=== PATIENT | male | born 1950 | race Caucasian/White ===

== ENCOUNTER 2016-06-06 02:30 | Emergency (ER) | payer BC ==
[~2016-06-06 02:30] MED LIST: AMLO10TA2 PO; ASPI81TA21 PO; ATEN25TA PO; LIPI10TA PO; METF500T PO; NITR0.4D TD; PRED20TA PO; RAMI5CAP PO
[2016-06-06 03:32] LABS: BASO # 0.1 K/mm3 (0.0-0.2); BASO % 1.1 % (0.0-1.0); EOS # 0.3 K/mm3 (0.0-0.50); EOS % 4.1 % (0.0-3.0); LARGE UNSTAINED CELL # 0.2 K/mm3 (0.0-0.4); LARGE UNSTAINED CELL % 2.4 % (0.0-4.0); LYMPH # 1.9 K/mm3 (1.5-4.5); LYMPH % 25.7 % (24.0-44.0); MEAN CORPUSCULAR HEMOGLOBIN 31.5 pg (27.0-33.0); MEAN CORPUSCULAR VOLUME 98.5 fl (80.0-96.0); MONO # 0.5 K/mm3 (0.0-0.8); MONO % 6.6 % (0.0-5.0); NEUTROPHILS # 4.1 K/mm3 (1.8-7.7); NEUTROPHILS % 60.1 % (36.0-66.0); PLATELET COUNT, AUTOMATED 177 k/mm3 (150-450); RED CELL DISTRIBUTION WIDTH 13.5 % (11.5-14.5); WHITE BLOOD COUNT 6.7 K/mm3 (4.0-10.0)
[2016-06-06 03:57] LABS: CALCIUM LEVEL 8.7 MG/DL (8.8-10.2); CREATININE FOR GFR 1.37 MG/DL (0.70-1.30); GLOMERULAR FILTRATION RATE 55.7 (>49); POTASSIUM SERUM 3.6 MEQ/L (3.5-5.1)
--- NOTE | 2016-06-06 04:29 | EDDOCDS ---
Physician Documentation [facility] Name: Geraldo Ruano Age: 66 yrs Sex: Male : 1950 Arrival Date: 06/06/2016 Time: 02:30 Bed 4 Private MD: Ady Batres H Disposition: 06/06/16 04:14 Discharged to Home/Self Care. Impression: Epistaxis - right, recurrent. - Condition is Stable. - Discharge Instructions: Nosebleed, Nosebleed, [id number]. - Medication Reconciliation, Local Pharmacy Hours form. - Follow up: Manohar Mckinley; When: 2 - 3 days; Reason: Continuance of care. - Problem is an acute exacerbation. - Symptoms have improved. - Notes: FOLLOW UP WITH ENT FOR FURTHER TESTING. RETURN TO THE ER IF NOSEBLEED RETURNS AND YOU ARE UNABLE TO STOP IT. Historical: - Allergies: unknown; - Home Meds: 1. aspirin 81 mg Oral tab 1 tab once daily 2. gabapentin 100 mg Oral cap twice a day 3. Vitamin B-12 500 mcg Oral tab daily 4. atorvastatin 20 mg oral tab 1 tab once daily 5. amlodipine 10 mg Oral tab 1 tab once daily 6. gabapentin 100 mg Oral cap 2 caps nightly 7. cilostazol 100 mg twice a day 8. chlorthalidone 25 mg Oral tab 0.5 tab once daily 9. tramadol 50 mg Oral tab 1 tab every 6 hours 10. diclofenac twice a day 11. metformin 500 mg Oral Tb24 twice a day 12. carvedilol 12.5 mg oral tab 1 tab daily 13. nitroglycerin 0.4 mg SL subl 1 tab as needed 14. eplerenone 25 mg oral tab 1 tab once daily - PMHx: Hypertension; Diabetes - NIDDM: controlled; CAD; CHF; - PSHx: Adenoidectomy; Appendectomy; CARPAL TUNNEL REPAIR; Tonsillectomy; Knee Arthroplasty, Right; - Social history: Smoking status: Patient states former smoker of tobacco. No barriers to communication noted, The patient speaks fluent Sami. - Family history: Not pertinent. - : The pt / caregiver states he / she is not on anticoagulants. Home medication list is obtained from the patient. - Exposure Risk Screening:: None identified. Vital Signs: 06/06 02:36 BP 131 / 80 RA Sitting (auto/); Pulse 88; Resp 18 S; Temp 98.2(T); Pulse Ox 95% on R/A; af2 Weight 97.52 kg / 214.99 lbs (R); Height 5 ft. 6 in. (167.64 cm) (R); 04:27 BP 158 / 72; Pulse 78; Resp 18; Temp 98.3(O); Pulse Ox 96% on R/A; Pain 0/10; tm5 02:36 Body Mass Index 34.70 (97.52 kg, 167.64 cm) af2 MDM: 03:19 CBC with Diff Ordered. EDMS 03:19 BMP Ordered. EDMS 03:19 Pt & Aptt Ordered. EDMS 04:04 CBC with Diff Reviewed. mm11 04:04 BMP Reviewed. mm11 04:04 Pt & Aptt Reviewed. mm11 Signatures: Dispatcher [employer] EDYuan Head DO DO mm11 Amy Walton RN RN af2 Skylar Cowan RN RN tm5 MTDD
--- NOTE | 2016-06-06 04:29 | EDDOCDS ---
Nurse's Notes [facility] Name: Geraldo Ruano Age: 66 yrs Sex: Male : 1950 Arrival Date: 06/06/2016 Time: 02:30 Bed 4 Private MD: Ady Batres H Diagnosis: Epistaxis-right, recurrent Presentation: 06/06 02:44 Presenting complaint: Patient states: intermittent nose bleeds occuring for 1.5 weeks, af2 occurs at night or first thing am. bleeding controlled at this time with tissues present to right nare. Adult Sepsis Screening: The patient does not have new or worsening altered mentation. Patient's respiratory rate is less than 22. Systolic blood pressure is greater than 100. Patient has a qSOFA score of 0- Negative Sepsis Screen. Suicide/Homicide risk assessment- the patient denies having any suicidal and/or homicidal ideations and does not present with any other emotional, behavioral or mental health complaints. Status: Patient is not a support services tech or dependent. Transition of care: patient was not received from another setting of care. 02:44 Acuity: LYNN Level 3 af2 02:44 Method Of Arrival: Walkin/Carried/Asstd af2 Triage Assessment: 02:45 General: Appears in no apparent distress, Behavior is appropriate for age. Pain: Denies af2 pain. Pt Declines HIV testing. EENT: Reports bleeding from right nare.. Historical: - Allergies: unknown; - Home Meds: 1. aspirin 81 mg Oral tab 1 tab once daily 2. gabapentin 100 mg Oral cap twice a day 3. Vitamin B-12 500 mcg Oral tab daily 4. atorvastatin 20 mg oral tab 1 tab once daily 5. amlodipine 10 mg Oral tab 1 tab once daily 6. gabapentin 100 mg Oral cap 2 caps nightly 7. cilostazol 100 mg twice a day 8. chlorthalidone 25 mg Oral tab 0.5 tab once daily 9. tramadol 50 mg Oral tab 1 tab every 6 hours 10. diclofenac twice a day 11. metformin 500 mg Oral Tb24 twice a day 12. carvedilol 12.5 mg oral tab 1 tab daily 13. nitroglycerin 0.4 mg SL subl 1 tab as needed 14. eplerenone 25 mg oral tab 1 tab once daily - PMHx: Hypertension; Diabetes - NIDDM: controlled; CAD; CHF; - PSHx: Adenoidectomy; Appendectomy; CARPAL TUNNEL REPAIR; Tonsillectomy; Knee Arthroplasty, Right; - Social history: Smoking status: Patient states former smoker of tobacco. No barriers to communication noted, The patient speaks fluent Slovenian. - Family history: Not pertinent. - : The pt / caregiver states he / she is not on anticoagulants. Home medication list is obtained from the patient. - Exposure Risk Screening:: None identified. Screenin:59 Screening information is obtained from the patient. Fall risk: No risks identified. tm5 Assistance ADL's: requires no assistance with activities of daily living. Abuse/DV Screen: The patient / caregiver reports he/she is: not in a situation that causes fear, pain or injury. Nutritional screening: No deficits noted. Advance Directives: Currently, there is no health care proxy. There is no active DNR order. home support is adequate. Assessment: 02:59 General: Appears in no apparent distress, Behavior is appropriate for age, cooperative, tm5 per pt has had bloody nose to right side of nare for the last hour, states that he has had issues with bloody noses for the past 1.5 weeks now. Pain: Denies pain. Neurological: Level of Consciousness is awake, alert, Oriented to person, place, time. Respiratory: No deficits noted. Airway is patent Respiratory effort is even, unlabored, Respiratory pattern is regular, symmetrical. Derm: Skin is pink, warm & dry. normal. 03:03 EENT: Nares with bleeding noted on right scant amounts of blood noted in right nare, tm5 not actively bleeding right now . 04:06 Reassessment: Patient appears in no apparent distress at this time. Patient states tm5 symptoms have improved. no bleeding still noted from right nare. 04:27 Reassessment: Patient appears in no apparent distress at this time. Patient states tm5 symptoms have improved. still no active bleeding at this time, pt feels well enough to go home. Vital Signs: 02:36 BP 131 / 80 RA Sitting (auto/); Pulse 88; Resp 18 S; Temp 98.2(T); Pulse Ox 95% on R/A; af2 Weight 97.52 kg (R); Height 5 ft. 6 in. (167.64 cm) (R); 04:27 BP 158 / 72; Pulse 78; Resp 18; Temp 98.3(O); Pulse Ox 96% on R/A; Pain 0/10; tm5 02:36 Body Mass Index 34.70 (97.52 kg, 167.64 cm) af2 Vitals: 02:36 Log In Time: June 06, 2016 at 02:30. af2 ED Course: 02:31 Patient visited by Martín Guevara Reg. pm4 02:31 Patient moved to Waiting pm4 02:32 Ady Batres is Private Physician. pm4 02:45 Patient visited by Amy Walton RN. af2 02:45 Triage Initiated af2 02:45 Patient moved to 4 af2 02:58 Patient visited by Skylar Cowan RN. tm5 02:59 Awaiting ED physician evaluation. tm5 02:59 The patient / caregiver is instructed regarding the plan of care and ED course. tm5 03:07 Yuan Carrillo DO is Attending Physician. mm11 03:07 Patient visited by Yuan Carrillo DO. mm11 03:14 Patient visited by Skylar Cowan RN. tm5 03:14 ED physician to see patient. tm5 03:17 Patient visited by Yuan Carrillo DO. mm11 03:23 Pt & Aptt Sent. tm5 03:23 BMP Sent. tm5 03:23 CBC with Diff Sent. tm5 03:23 Labs drawn. (by ED staff). Sent per order to lab. tm5 04:06 Patient visited by Skylar Cowan RN. tm5 04:14 Manohar Mckinley is Referral Physician. mm11 04:27 Patient visited by Skylar Cowan RN. tm5 04:27 No IV's were initiated during this patient's visit. No procedures done that require tm5 assistance. Order Results: Lab Order: CBC with Diff; SPEC'M 06/06/16 03:22 Test: WHITE BLOOD COUNT; Value: 6.7; Range: 4.0-10.0; Units: K/mm3; Status: F Test: RED BLOOD COUNT; Value: 4.41; Range: 4.30-6.10; Units: M/mm3; Status: F Test: HEMOGLOBIN; Value: 13.9; Range: 14.0-18.0; Abnormal: Below low normal; Units: g/dl; Status: F Test: HEMATOCRIT; Value: 43.5; Range: 42.0-52.0; Units: %; Status: F Test: MEAN CORPUSCULAR VOLUME; Value: 98.5; Range: 80.0-96.0; Abnormal: Above high normal; Units: fl; Status: F Test: MEAN CORPUSCULAR HEMOGLOBIN; Value: 31.5; Range: 27.0-33.0; Units: pg; Status: F Test: MEAN CORPUSCULAR HGB CONC; Value: 32.0; Range: 32.0-36.5; Units: g/dl; Status: F Test: RED CELL DISTRIBUTION WIDTH; Value: 13.5; Range: 11.5-14.5; Units: %; Status: F Test: PLATELET COUNT, AUTOMATED; Value: 177; Range: 150-450; Units: k/mm3; Status: F Test: NEUTROPHILS %; Value: 60.1; Range: 36.0-66.0; Units: %; Status: F Test: LYMPH %; Value: 25.7; Range: 24.0-44.0; Units: %; Status: F Test: MONO %; Value: 6.6; Range: 0.0-5.0; Abnormal: Above high normal; Units: %; Status: F Test: EOS %; Value: 4.1; Range: 0.0-3.0; Abnormal: Above high normal; Units: %; Status: F Test: BASO %; Value: 1.1; Range: 0.0-1.0; Abnormal: Above high normal; Units: %; Status: F Test: LARGE UNSTAINED CELL %; Value: 2.4; Range: 0.0-4.0; Units: %; Status: F Test: NEUTROPHILS #; Value: 4.1; Range: 1.8-7.7; Units: K/mm3; Status: F Test: LYMPH #; Value: 1.9; Range: 1.5-4.5; Units: K/mm3; Status: F Test: MONO #; Value: 0.5; Range: 0.0-0.8; Units: K/mm3; Status: F Test: EOS #; Value: 0.3; Range: 0.0-0.50; Units: K/mm3; Status: F Test: BASO #; Value: 0.1; Range: 0.0-0.2; Units: K/mm3; Status: F Test: LARGE UNSTAINED CELL #; Value: 0.2; Range: 0.0-0.4; Units: K/mm3; Status: F Lab Order: BMP; SPEC'M 06/06/16 03:22 Test: GLUCOSE, FASTING; Value: 194; Range: 80-110; Abnormal: Above high normal; Units: MG/DL; Status: F Test: BLOOD UREA NITROGEN; Value: 18; Range: 7-18; Units: MG/DL; Status: F Test: CREATININE FOR GFR; Value: 1.37; Range: 0.70-1.30; Abnormal: Above high normal; Units: MG/DL; Status: F Test: GLOMERULAR FILTRATION RATE; Value: 55.7; Range: >49; Status: F Test: SODIUM LEVEL; Value: 142; Range: 136-145; Units: MEQ/L; Status: F Test: POTASSIUM SERUM; Value: 3.6; Range: 3.5-5.1; Units: MEQ/L; Status: F Test: CHLORIDE LEVEL; Value: 103; Range: 98-107; Units: MEQ/L; Status: F Test: CARBON DIOXIDE LEVEL; Value: 25; Range: 21-32; Units: MEQ/L; Status: F Test: ANION GAP; Value: 14; Range: 8-16; Units: MEQ/L; Status: F Test: CALCIUM LEVEL; Value: 8.7; Range: 8.8-10.2; Abnormal: Below low normal; Units: MG/DL; Status: F Test Note: ; Units are mL/min/1.73 m2 Chronic Kidney Disease Staging per NKF: Stage I & II GFR >=60 Normal to Mildly Decreased Stage III GFR 30-59 Moderately Decreased Stage IV GFR 15-29 Severely Decreased Stage V GFR <15 Very Little GFR Left ESRD GFR <15 on MARRIAGE AND FAMILY SOCIAL WORKER Lab Order: Pt & Aptt; SPEC'M 06/06/16 03:22 Test: PROTHROMBIN TIME; Value: 13.3; Range: 12.3-14.5; Units: SECONDS; Status: F Test: INR; Value: 1.00; Status: F Test: PARTIAL THROMBOPLASTIN TIME; Value: 35.8; Range: 26.6-37.1; Units: SECONDS; Status: F Test Note: ; THERAPUTIC HUMAN INR VALUES INDICATIONS NORMAL RANGES PROPHYLAXIS/TREATMENT OF: VENOUS THROMBOSIS 2.0-3.0 PULMONARY EMBOLISM 2.0-3.0 PREVENTION OF SYSTEMIC EMBOLISM FROM: TISSUE HEART VALVES 2.0-3.0 ACUTE MYOCARDIAL INFARCTION 2.0-3.0 VALVULAR HEART DISEASE 2.0-3.0 ATRIAL FIBRILLATION 2.0-3.0 MECHANICAL VALVES(HIGH RISK) 2.5-3.5 RECURRENT MYOCARDIAL INFARCTION 2.5-3.5 Outcome: 04:14 Discharge ordered by Provider. mm11 04:27 Discharge Assessment: Patient awake, alert and oriented x 3. No cognitive and/or tm5 functional deficits noted. Patient verbalized understanding of disposition instructions. patient administered narcotics - no. The following High Risk Discharge criteria are identified: None. Discharged to home ambulatory, with significant other. Condition: good Condition: stable Condition: improved. Discharge instructions given to patient, Instructed on discharge instructions, follow up and referral plans. Demonstrated understanding of instructions, Pt was receptive of discharge instructions/ teaching. No special radiology studies were completed. Property :Personal belongings accompany Pt. 04:29 Patient left the ED. tm5 Signatures: Yuan Carrillo DO DO mm11 Amy WaltonRN RN af2 Skylar Cowan RN RN tm5 Martín Guevara, Reg Reg pm4 TYE
--- NOTE | 2016-06-08 05:29 | EDDOCDS ---
Nurse's Notes [facility] Name: Geraldo Ruano Age: 66 yrs Sex: Male : 1950 Arrival Date: 06/06/2016 Time: 02:30 Bed 4 Private MD: Ady Batres H Diagnosis: Epistaxis-right, recurrent Presentation: 06/06 02:44 Presenting complaint: Patient states: intermittent nose bleeds occuring for 1.5 weeks, af2 occurs at night or first thing am. bleeding controlled at this time with tissues present to right nare. Adult Sepsis Screening: The patient does not have new or worsening altered mentation. Patient's respiratory rate is less than 22. Systolic blood pressure is greater than 100. Patient has a qSOFA score of 0- Negative Sepsis Screen. Suicide/Homicide risk assessment- the patient denies having any suicidal and/or homicidal ideations and does not present with any other emotional, behavioral or mental health complaints. Status: Patient is not a bridal service sales and management or dependent. Transition of care: patient was not received from another setting of care. 02:44 Acuity: LYNN Level 3 af2 02:44 Method Of Arrival: Walkin/Carried/Asstd af2 Triage Assessment: 02:45 General: Appears in no apparent distress, Behavior is appropriate for age. Pain: Denies af2 pain. Pt Declines HIV testing. EENT: Reports bleeding from right nare.. Historical: - Allergies: unknown; - Home Meds: 1. aspirin 81 mg Oral tab 1 tab once daily 2. gabapentin 100 mg Oral cap twice a day 3. Vitamin B-12 500 mcg Oral tab daily 4. atorvastatin 20 mg oral tab 1 tab once daily 5. amlodipine 10 mg Oral tab 1 tab once daily 6. gabapentin 100 mg Oral cap 2 caps nightly 7. cilostazol 100 mg twice a day 8. chlorthalidone 25 mg Oral tab 0.5 tab once daily 9. tramadol 50 mg Oral tab 1 tab every 6 hours 10. diclofenac twice a day 11. metformin 500 mg Oral Tb24 twice a day 12. carvedilol 12.5 mg oral tab 1 tab daily 13. nitroglycerin 0.4 mg SL subl 1 tab as needed 14. eplerenone 25 mg oral tab 1 tab once daily - PMHx: Hypertension; Diabetes - NIDDM: controlled; CAD; CHF; - PSHx: Adenoidectomy; Appendectomy; CARPAL TUNNEL REPAIR; Tonsillectomy; Knee Arthroplasty, Right; - Social history: Smoking status: Patient states former smoker of tobacco. No barriers to communication noted, The patient speaks fluent Filipino. - Family history: Not pertinent. - : The pt / caregiver states he / she is not on anticoagulants. Home medication list is obtained from the patient. - Exposure Risk Screening:: None identified. Screenin:59 Screening information is obtained from the patient. Fall risk: No risks identified. tm5 Assistance ADL's: requires no assistance with activities of daily living. Abuse/DV Screen: The patient / caregiver reports he/she is: not in a situation that causes fear, pain or injury. Nutritional screening: No deficits noted. Advance Directives: Currently, there is no health care proxy. There is no active DNR order. home support is adequate. Assessment: 02:59 General: Appears in no apparent distress, Behavior is appropriate for age, cooperative, tm5 per pt has had bloody nose to right side of nare for the last hour, states that he has had issues with bloody noses for the past 1.5 weeks now. Pain: Denies pain. Neurological: Level of Consciousness is awake, alert, Oriented to person, place, time. Respiratory: No deficits noted. Airway is patent Respiratory effort is even, unlabored, Respiratory pattern is regular, symmetrical. Derm: Skin is pink, warm & dry. normal. 03:03 EENT: Nares with bleeding noted on right scant amounts of blood noted in right nare, tm5 not actively bleeding right now . 04:06 Reassessment: Patient appears in no apparent distress at this time. Patient states tm5 symptoms have improved. no bleeding still noted from right nare. 04:27 Reassessment: Patient appears in no apparent distress at this time. Patient states tm5 symptoms have improved. still no active bleeding at this time, pt feels well enough to go home. Vital Signs: 02:36 BP 131 / 80 RA Sitting (auto/); Pulse 88; Resp 18 S; Temp 98.2(T); Pulse Ox 95% on R/A; af2 Weight 97.52 kg (R); Height 5 ft. 6 in. (167.64 cm) (R); 04:27 BP 158 / 72; Pulse 78; Resp 18; Temp 98.3(O); Pulse Ox 96% on R/A; Pain 0/10; tm5 02:36 Body Mass Index 34.70 (97.52 kg, 167.64 cm) af2 Vitals: 02:36 Log In Time: June 06, 2016 at 02:30. af2 ED Course: 02:31 Patient visited by Martín Guevara Reg. pm4 02:31 Patient moved to Waiting pm4 02:32 Ady Batres is Private Physician. pm4 02:45 Patient visited by Amy Walton RN. af2 02:45 Triage Initiated af2 02:45 Patient moved to 4 af2 02:58 Patient visited by Skylar Cowan RN. tm5 02:59 Awaiting ED physician evaluation. tm5 02:59 The patient / caregiver is instructed regarding the plan of care and ED course. tm5 03:07 Yuan Carrillo DO is Attending Physician. mm11 03:07 Patient visited by Yuan Carrillo DO. mm11 03:14 Patient visited by Skylar Cowan RN. tm5 03:14 ED physician to see patient. tm5 03:17 Patient visited by Yuan Carrillo DO. mm11 03:23 Pt & Aptt Sent. tm5 03:23 BMP Sent. tm5 03:23 CBC with Diff Sent. tm5 03:23 Labs drawn. (by ED staff). Sent per order to lab. tm5 04:06 Patient visited by Skylar Cowan RN. tm5 04:14 Manohar Mckinley is Referral Physician. mm11 04:27 Patient visited by Skylar Cowan RN. tm5 04:27 No IV's were initiated during this patient's visit. No procedures done that require tm5 assistance. 05:49 [facility] [place] was scanned into [employer] and attached to record. hs2 05:51 Patient name changed from Geraldo\S\\S\Ruano\S\ to Geraldo\S\ \S\Ruano. EDMS 12:26 T-Sheet-- Draft Copy was scanned into [employer] and attached to record. gb Order Results: Lab Order: CBC with Diff; SPEC'M 06/06/16 03:22 Test: WHITE BLOOD COUNT; Value: 6.7; Range: 4.0-10.0; Units: K/mm3; Status: F Test: RED BLOOD COUNT; Value: 4.41; Range: 4.30-6.10; Units: M/mm3; Status: F Test: HEMOGLOBIN; Value: 13.9; Range: 14.0-18.0; Abnormal: Below low normal; Units: g/dl; Status: F Test: HEMATOCRIT; Value: 43.5; Range: 42.0-52.0; Units: %; Status: F Test: MEAN CORPUSCULAR VOLUME; Value: 98.5; Range: 80.0-96.0; Abnormal: Above high normal; Units: fl; Status: F Test: MEAN CORPUSCULAR HEMOGLOBIN; Value: 31.5; Range: 27.0-33.0; Units: pg; Status: F Test: MEAN CORPUSCULAR HGB CONC; Value: 32.0; Range: 32.0-36.5; Units: g/dl; Status: F Test: RED CELL DISTRIBUTION WIDTH; Value: 13.5; Range: 11.5-14.5; Units: %; Status: F Test: PLATELET COUNT, AUTOMATED; Value: 177; Range: 150-450; Units: k/mm3; Status: F Test: NEUTROPHILS %; Value: 60.1; Range: 36.0-66.0; Units: %; Status: F Test: LYMPH %; Value: 25.7; Range: 24.0-44.0; Units: %; Status: F Test: MONO %; Value: 6.6; Range: 0.0-5.0; Abnormal: Above high normal; Units: %; Status: F Test: EOS %; Value: 4.1; Range: 0.0-3.0; Abnormal: Above high normal; Units: %; Status: F Test: BASO %; Value: 1.1; Range: 0.0-1.0; Abnormal: Above high normal; Units: %; Status: F Test: LARGE UNSTAINED CELL %; Value: 2.4; Range: 0.0-4.0; Units: %; Status: F Test: NEUTROPHILS #; Value: 4.1; Range: 1.8-7.7; Units: K/mm3; Status: F Test: LYMPH #; Value: 1.9; Range: 1.5-4.5; Units: K/mm3; Status: F Test: MONO #; Value: 0.5; Range: 0.0-0.8; Units: K/mm3; Status: F Test: EOS #; Value: 0.3; Range: 0.0-0.50; Units: K/mm3; Status: F Test: BASO #; Value: 0.1; Range: 0.0-0.2; Units: K/mm3; Status: F Test: LARGE UNSTAINED CELL #; Value: 0.2; Range: 0.0-0.4; Units: K/mm3; Status: F Lab Order: [facility]; SPEC'M 06/06/16 03:22 Test: GLUCOSE, FASTING; Value: 194; Range: 80-110; Abnormal: Above high normal; Units: MG/DL; Status: F Test: BLOOD UREA NITROGEN; Value: 18; Range: 7-18; Units: MG/DL; Status: F Test: CREATININE FOR GFR; Value: 1.37; Range: 0.70-1.30; Abnormal: Above high normal; Units: MG/DL; Status: F Test: GLOMERULAR FILTRATION RATE; Value: 55.7; Range: >49; Status: F Test: SODIUM LEVEL; Value: 142; Range: 136-145; Units: MEQ/L; Status: F Test: POTASSIUM SERUM; Value: 3.6; Range: 3.5-5.1; Units: MEQ/L; Status: F Test: CHLORIDE LEVEL; Value: 103; Range: 98-107; Units: MEQ/L; Status: F Test: CARBON DIOXIDE LEVEL; Value: 25; Range: 21-32; Units: MEQ/L; Status: F Test: ANION GAP; Value: 14; Range: 8-16; Units: MEQ/L; Status: F Test: CALCIUM LEVEL; Value: 8.7; Range: 8.8-10.2; Abnormal: Below low normal; Units: MG/DL; Status: F Test Note: ; Units are mL/min/1.73 m2 Chronic Kidney Disease Staging per NKF: Stage I & II GFR >=60 Normal to Mildly Decreased Stage III GFR 30-59 Moderately Decreased Stage IV GFR 15-29 Severely Decreased Stage V GFR <15 Very Little GFR Left ESRD GFR <15 on SENIOR BIOSTATISTICIAN Lab Order: Pt & Aptt; SPEC'M 06/06/16 03:22 Test: PROTHROMBIN TIME; Value: 13.3; Range: 12.3-14.5; Units: SECONDS; Status: F Test: INR; Value: 1.00; Status: F Test: PARTIAL THROMBOPLASTIN TIME; Value: 35.8; Range: 26.6-37.1; Units: SECONDS; Status: F Test Note: ; THERAPUTIC HUMAN INR VALUES INDICATIONS NORMAL RANGES PROPHYLAXIS/TREATMENT OF: VENOUS THROMBOSIS 2.0-3.0 PULMONARY EMBOLISM 2.0-3.0 PREVENTION OF SYSTEMIC EMBOLISM FROM: TISSUE HEART VALVES 2.0-3.0 ACUTE MYOCARDIAL INFARCTION 2.0-3.0 VALVULAR HEART DISEASE 2.0-3.0 ATRIAL FIBRILLATION 2.0-3.0 MECHANICAL VALVES(HIGH RISK) 2.5-3.5 RECURRENT MYOCARDIAL INFARCTION 2.5-3.5 Outcome: 04:14 Discharge ordered by Provider. mm11 04:27 Discharge Assessment: Patient awake, alert and oriented x 3. No cognitive and/or tm5 functional deficits noted. Patient verbalized understanding of disposition instructions. patient administered narcotics - no. The following High Risk Discharge criteria are identified: None. Discharged to home ambulatory, with significant other. Condition: good Condition: stable Condition: improved. Discharge instructions given to patient, Instructed on discharge instructions, follow up and referral plans. Demonstrated understanding of instructions, Pt was receptive of discharge instructions/ teaching. No special radiology studies were completed. Property :Personal belongings accompany Pt. 04:29 Patient left the ED. tm5 Signatures: Dispatcher [employer] EDND Asha Quiñones, Reg Reg gb Yuan Carrillo, DO DO mm11 Amy Walton,RN RN af2 Florina Ross, Reg Reg hs2 Skylar Cowan RN RN tm5 Martín Guevara, Reg Reg pm4 Chart Complete MTDD
--- NOTE | 2016-06-08 05:29 | EDDOCDS ---
Physician Documentation [facility] Name: Geraldo Ruano Age: 66 yrs Sex: Male : 1950 Arrival Date: 06/06/2016 Time: 02:30 Bed 4 Private MD: Ady Batres H Disposition: 06/06/16 04:14 Discharged to Home/Self Care. Impression: Epistaxis - right, recurrent. - Condition is Stable. - Discharge Instructions: Nosebleed, Nosebleed, [id number]. - Medication Reconciliation, Local Pharmacy Hours form. - Follow up: Manohar Mckinley; When: 2 - 3 days; Reason: Continuance of care. - Problem is an acute exacerbation. - Symptoms have improved. - Notes: FOLLOW UP WITH ENT FOR FURTHER TESTING. RETURN TO THE ER IF NOSEBLEED RETURNS AND YOU ARE UNABLE TO STOP IT. Historical: - Allergies: unknown; - Home Meds: 1. aspirin 81 mg Oral tab 1 tab once daily 2. gabapentin 100 mg Oral cap twice a day 3. Vitamin B-12 500 mcg Oral tab daily 4. atorvastatin 20 mg oral tab 1 tab once daily 5. amlodipine 10 mg Oral tab 1 tab once daily 6. gabapentin 100 mg Oral cap 2 caps nightly 7. cilostazol 100 mg twice a day 8. chlorthalidone 25 mg Oral tab 0.5 tab once daily 9. tramadol 50 mg Oral tab 1 tab every 6 hours 10. diclofenac twice a day 11. metformin 500 mg Oral Tb24 twice a day 12. carvedilol 12.5 mg oral tab 1 tab daily 13. nitroglycerin 0.4 mg SL subl 1 tab as needed 14. eplerenone 25 mg oral tab 1 tab once daily - PMHx: Hypertension; Diabetes - NIDDM: controlled; CAD; CHF; - PSHx: Adenoidectomy; Appendectomy; CARPAL TUNNEL REPAIR; Tonsillectomy; Knee Arthroplasty, Right; - Social history: Smoking status: Patient states former smoker of tobacco. No barriers to communication noted, The patient speaks fluent Albanian. - Family history: Not pertinent. - : The pt / caregiver states he / she is not on anticoagulants. Home medication list is obtained from the patient. - Exposure Risk Screening:: None identified. Vital Signs: 06/06 02:36 BP 131 / 80 RA Sitting (auto/); Pulse 88; Resp 18 S; Temp 98.2(T); Pulse Ox 95% on R/A; af2 Weight 97.52 kg / 214.99 lbs (R); Height 5 ft. 6 in. (167.64 cm) (R); 04:27 BP 158 / 72; Pulse 78; Resp 18; Temp 98.3(O); Pulse Ox 96% on R/A; Pain 0/10; tm5 02:36 Body Mass Index 34.70 (97.52 kg, 167.64 cm) af2 MDM: 03:19 CBC with Diff Ordered. EDMS 03:19 BMP Ordered. EDMS 03:19 Pt & Aptt Ordered. EDMS 04:04 CBC with Diff Reviewed. mm11 04:04 BMP Reviewed. mm11 04:04 Pt & Aptt Reviewed. mm11 05:49 Financial registration complete. hs2 05:49 [facility] Payment Agreement was scanned into [employer] and attached to record. hs2 12:26 T-Sheet-- Draft Copy was scanned into [employer] and attached to record. gb Signatures: Dispatcher [employer] EDMS Asha Quiñones, Reg Reg gb Yuan Carrillo, DO DO mm11 Amy Walton,RN RN af2 Florina Ross, Reg Reg hs2 Skylar Cowan,RN RN tm5 The chart was reviewed and I authenticate all verbal orders and agree with the evaluation and treatment provided.Attachments: 05:49 [facility] Payment Agreement hs2 12:26 T-Sheet-- Draft Copy gb Chart Complete MTDD
--- NOTE | 2016-06-08 05:29 | EDDOCDS ---
Physician Documentation [facility] Name: Geraldo Ruano Age: 66 yrs Sex: Male : 1950 Arrival Date: 06/06/2016 Time: 02:30 Bed 4 Private MD: Ady Batres H Disposition: 06/06/16 04:14 Discharged to Home/Self Care. Impression: Epistaxis - right, recurrent. - Condition is Stable. - Discharge Instructions: Nosebleed, Nosebleed, [id number]. - Medication Reconciliation, Local Pharmacy Hours form. - Follow up: Manohar Mckinley; When: 2 - 3 days; Reason: Continuance of care. - Problem is an acute exacerbation. - Symptoms have improved. - Notes: FOLLOW UP WITH ENT FOR FURTHER TESTING. RETURN TO THE ER IF NOSEBLEED RETURNS AND YOU ARE UNABLE TO STOP IT. Historical: - Allergies: unknown; - Home Meds: 1. aspirin 81 mg Oral tab 1 tab once daily 2. gabapentin 100 mg Oral cap twice a day 3. Vitamin B-12 500 mcg Oral tab daily 4. atorvastatin 20 mg oral tab 1 tab once daily 5. amlodipine 10 mg Oral tab 1 tab once daily 6. gabapentin 100 mg Oral cap 2 caps nightly 7. cilostazol 100 mg twice a day 8. chlorthalidone 25 mg Oral tab 0.5 tab once daily 9. tramadol 50 mg Oral tab 1 tab every 6 hours 10. diclofenac twice a day 11. metformin 500 mg Oral Tb24 twice a day 12. carvedilol 12.5 mg oral tab 1 tab daily 13. nitroglycerin 0.4 mg SL subl 1 tab as needed 14. eplerenone 25 mg oral tab 1 tab once daily - PMHx: Hypertension; Diabetes - NIDDM: controlled; CAD; CHF; - PSHx: Adenoidectomy; Appendectomy; CARPAL TUNNEL REPAIR; Tonsillectomy; Knee Arthroplasty, Right; - Social history: Smoking status: Patient states former smoker of tobacco. No barriers to communication noted, The patient speaks fluent Yi. - Family history: Not pertinent. - : The pt / caregiver states he / she is not on anticoagulants. Home medication list is obtained from the patient. - Exposure Risk Screening:: None identified. Vital Signs: 06/06 02:36 BP 131 / 80 RA Sitting (auto/); Pulse 88; Resp 18 S; Temp 98.2(T); Pulse Ox 95% on R/A; af2 Weight 97.52 kg / 214.99 lbs (R); Height 5 ft. 6 in. (167.64 cm) (R); 04:27 BP 158 / 72; Pulse 78; Resp 18; Temp 98.3(O); Pulse Ox 96% on R/A; Pain 0/10; tm5 02:36 Body Mass Index 34.70 (97.52 kg, 167.64 cm) af2 MDM: 03:19 CBC with Diff Ordered. EDMS 03:19 BMP Ordered. EDMS 03:19 Pt & Aptt Ordered. EDMS 04:04 CBC with Diff Reviewed. mm11 04:04 BMP Reviewed. mm11 04:04 Pt & Aptt Reviewed. mm11 05:49 Financial registration complete. hs2 05:49 [facility] Payment Agreement was scanned into [employer] and attached to record. hs2 12:26 T-Sheet-- Draft Copy was scanned into [employer] and attached to record. gb Signatures: Dispatcher [employer] EDMS Asha Quiñones, Reg Reg gb Yuan Carrillo, DO DO mm11 Amy Walton,RN RN af2 Florina Ross, Reg Reg hs2 Skylar Cowan,RN RN tm5 The chart was reviewed and I authenticate all verbal orders and agree with the evaluation and treatment provided.Attachments: 05:49 [facility] Payment Agreement hs2 12:26 T-Sheet-- Draft Copy gb Chart Complete MTDD
== END 2016-06-06 04:29 | disposition home or self-care (01) ==
LOC: M ED 02:30
DX: R04.0 Epistaxis (principal); I10 Essential (primary) hypertension; E11.9 Type 2 diabetes mellitus without complications; I50.9 Heart failure, unspecified; I25.10 Atherosclerotic heart disease of native coronary artery without angina pectoris; Z79.899 Other long term (current) drug therapy; Z79.84 Long term (current) use of oral hypoglycemic drugs; Z79.82 Long term (current) use of aspirin

== ENCOUNTER 2017-05-21 10:22 | Emergency (ER) | payer MEDICARE, BC | END 2017-05-21 11:36 | disposition home or self-care (01) | LOC: M ED 10:22 | DX: L08.9 Local infection of the skin and subcutaneous tissue, unspecified (principal); Z98.890 Other specified postprocedural states; E11.9 Type 2 diabetes mellitus without complications; I10 Essential (primary) hypertension; E78.4 Other hyperlipidemia; I25.2 Old myocardial infarction; Z72.0 Tobacco use | CPT/HCPCS: 87186 ==

== ENCOUNTER → 2017-06-03 | Outpatient (REF) | payer MEDICARE ==
[2017-06-03 19:36] LABS: C REACTIVE PROTEIN QUANTITATIV 1.51 MG/DL (0.00-0.30)
[2017-06-03 19:39] LABS: ESTIMATED AVERAGE GLUCOSE 237 MG/DL (60-110); HEMOGLOBIN A1c 9.9 %
[2017-06-03 20:27] LABS: ERYTHROCYTE SEDIMENTATION RATE 42 mm/hr (0-20)
== END ==
LOC: M LAB REF 16:37
DX: T81.30XA Disruption of wound, unspecified, initial encounter (principal); S01.401A Unspecified open wound of right cheek and temporomandibular area, initial encounter; E11.9 Type 2 diabetes mellitus without complications; X58.XXXA Exposure to other specified factors, initial encounter; Y92.9 Unspecified place or not applicable; Y93.9 Activity, unspecified
CPT/HCPCS: 83036

== ENCOUNTER 2017-06-25 18:34 | Inpatient (IN) | payer MEDICARE ==
[2017-06-25] MEDS: NS 500 ML IV (21:45)
[2017-06-25 22:11] LABS: BASO # 0.1 10^3/uL (0.0-0.2); BASO % 0.4 % (0.0-1.0); EOS % 0.1 % (0.0-3.0); HEMATOCRIT 52.3 % (42.0-52.0); HEMOGLOBIN 17.3 g/dl (14.0-18.0); IMMATURE GRANULOCYTE # 0.3 10^3/uL (0-0); IMMATURE GRANULOCYTE % 1.4 % (0-0); LYMPH # 2.3 10^3/uL (1.5-4.5); LYMPH % 12.5 % (24.0-44.0); MEAN CORPUSCULAR HEMOGLOBIN 32.8 pg (27.0-33.0); MEAN CORPUSCULAR HGB CONC 33.1 g/dl (32.0-36.5); MEAN CORPUSCULAR VOLUME 99.1 fl (80.0-96.0); MONO # 1.4 10^3/uL (0.0-0.8); MONO % 7.6 % (0.0-5.0); NEUTROPHILS # 14.3 10^3/uL (1.8-7.7); PLATELET COUNT, AUTOMATED 228 10^3/uL (150-450); RED BLOOD COUNT 5.28 10^6/uL (4.30-6.10); RED CELL DISTRIBUTION WIDTH 13.7 % (11.5-14.5); WHITE BLOOD COUNT 18.4 10^3/uL (4.0-10.0)
[2017-06-25 22:12] LABS: KETONE, URINE AUTO RFX NEGATIVE (NEGATIVE); LEUKOCYTE ESTERASE UR AUTO RFX NEGATIVE (NEGATIVE); MUCUS, URINE RFX SMALL (NEGATIVE); NITRITE, URINE AUTO RFX NEGATIVE (NEGATIVE); RBC, URINE AUTO RFX 3 /HPF (0-3); SPECIFIC GRAVITY UR AUTO RFX 1.027 (1.002-1.035); SQUAM EPITHELIAL CELL UR AURFX 0 /HPF (0-6); WBC, URINE AUTO RFX 0 /HPF (0-3)
[2017-06-25] MEDS: MAALOX 30 ML SUSP *UDC PO (22:14)
[2017-06-25 22:52] LABS: ALBUMIN 4.3 GM/DL (3.2-5.2); ALBUMIN/GLOBULIN RATIO 0.86 (1.00-1.93); ALKALINE PHOSPHATASE 299 U/L (45-117); ALT/SGPT 190 U/L (12-78); ANION GAP 10 MEQ/L (8-16); AST/SGOT 74 U/L (7-37); BILIRUBIN,DIRECT 0.4 MG/DL (0.0-0.2); BLOOD UREA NITROGEN 15 MG/DL (7-18); CARBON DIOXIDE LEVEL 30 MEQ/L (21-32); CHLORIDE LEVEL 94 MEQ/L (98-107); CREATININE FOR GFR 1.52 MG/DL (0.70-1.30); GLOMERULAR FILTRATION RATE 49.2 (>49); LIPASE 9248 U/L (73-393); POTASSIUM SERUM 3.5 MEQ/L (3.5-5.1); SODIUM LEVEL 134 MEQ/L (136-145); TOTAL PROTEIN 9.3 GM/DL (6.4-8.2)
[2017-06-25 23:00] LABS: GLUCOSE, FASTING 723 MG/DL (70-100)
[2017-06-25 23:16] LABS: AMYLASE 400 U/L (25-115)
[2017-06-25] MEDS: NS 1,000 ML IV (23:48)
[2017-06-25] MEDS: HumuLIN R (REGULAR) INSULIN (NovoLIN R) **100U/ML** PER UNIT IV (23:49)
[2017-06-26] MEDS ORDERED: DEXTROSE 50% 50 ML SYRINGE IV (00:15)
[2017-06-26] MEDS ORDERED: GLUCOSE 4 GM CHEW TABLET PO (00:15)
[2017-06-26] MEDS ORDERED: ACETAMINOPHEN TAB 650MG DOSE (2X325MG) PO (00:15)
[2017-06-26] MEDS ORDERED: GLUCAGON FOR INJ 1 MG VIAL (J1610) SC (00:15)
[2017-06-26] MEDS: NS 1,000 ML IV ×4 (02:05→20:22)
[2017-06-26 02:06] LABS: BEDSIDE GLUCOSE 290 MG/DL (80-115)
[2017-06-26] MEDS ORDERED: POLYVINYL ALCOHOL OPHTH SOLN 15 ML(LIQUITEARS) OU (03:15)
[2017-06-26] MEDS: MORPHINE 2 MG/ML 1ML SYRINGE IV ×2 (03:24→08:47)
[2017-06-26 06:00] LABS: BEDSIDE GLUCOSE 227 MG/DL (80-115)
[2017-06-26] MEDS: HumaLOG INSULIN (NovoLOG) PER UNIT SC ×4 (06:06→23:46)
[2017-06-26] MEDS ORDERED: HumaLOG INSULIN (NovoLOG) PER UNIT SC (07:30)
[2017-06-26 08:06] LABS: ERYTHROCYTE SEDIMENTATION RATE 25 mm/hr (0-20)
[2017-06-26 08:11] LABS: ALBUMIN 3.4 GM/DL (3.2-5.2); ALKALINE PHOSPHATASE 216 U/L (45-117); ALT/SGPT 153 U/L (12-78); ANION GAP 9 MEQ/L (8-16); AST/SGOT 98 U/L (7-37); BILIRUBIN,TOTAL 0.8 MG/DL (0.2-1.0); BLOOD UREA NITROGEN 14 MG/DL (7-18); CALCIUM LEVEL 9.3 MG/DL (8.8-10.2); CARBON DIOXIDE LEVEL 32 MEQ/L (21-32); CHLORIDE LEVEL 107 MEQ/L (98-107); CREATININE FOR GFR 1.02 MG/DL (0.70-1.30); GLOMERULAR FILTRATION RATE > 60.0 (>49); GLUCOSE, FASTING 232 MG/DL (70-100); LIPASE 3358 U/L (73-393); SODIUM LEVEL 148 MEQ/L (136-145); TOTAL PROTEIN 6.8 GM/DL (6.4-8.2)
[2017-06-26] MEDS: GABAPENTIN 300 MG CAP PO ×3 (08:48→20:22)
[2017-06-26] MEDS: ONDANSETRON 4MG/2ML VIAL (J2405) IV (08:48)
[2017-06-26] MEDS: SENOKOT S TAB PO (08:48)
[2017-06-26] MEDS: ENOXAPARIN 40 MG/0.4 ML SYRINGE (J1650) SC (08:48)
[2017-06-26] MEDS: CYANOCOBALAMIN 500 MCG TAB PO (08:49)
[2017-06-26] MEDS: ASPIRIN 81 MG ENTERIC TAB PO (08:49)
[2017-06-26] MEDS: CARVedilol 12.5 MG TAB PO ×2 (08:49→20:24)
[2017-06-26] MEDS: PANTOPRAZOLE 20 MG TAB PO (08:49)
[2017-06-26] MEDS: traMADol 50 MG TAB PO ×3 (08:50→20:22)
[2017-06-26 08:55] LABS: HEMATOCRIT 45.2 % (42.0-52.0); HEMOGLOBIN 15.4 g/dl (14.0-18.0); MEAN CORPUSCULAR HEMOGLOBIN 32.4 pg (27.0-33.0); MEAN CORPUSCULAR HGB CONC 34.1 g/dl (32.0-36.5); MEAN CORPUSCULAR VOLUME 95.2 fl (80.0-96.0); PLATELET COUNT, AUTOMATED 171 10^3/uL (150-450); RED BLOOD COUNT 4.75 10^6/uL (4.30-6.10); RED CELL DISTRIBUTION WIDTH 13.5 % (11.5-14.5); WHITE BLOOD COUNT 17.8 10^3/uL (4.0-10.0)
[2017-06-26 09:19] LABS: CHOLESTEROL LEVEL 110 MG/DL (<200); CHOLESTEROL RISK RATIO 2.894 (<5); HDL CHOLESTEROL 38 MG/DL (>40); NON-HDL-C 72 MG/DL; TRIGLYCERIDES LEVEL 270 MG/DL (<150)
[2017-06-26 09:25] LABS: INR 1.06; PROTHROMBIN TIME 13.9 SECONDS (12.4-14.5)
[2017-06-26 09:26] LABS: PARTIAL THROMBOPLASTIN TIME 31.2 SECONDS (26.8-37.9)
[2017-06-26 09:40] LABS: HEPATITIS B SURFACE ANTIGEN NEGATIVE (NEGATIVE)
[2017-06-26 10:08] LABS: HEPATITIS C VIRUS ABY INDEX < 0.0 INDEX (<0.8)
[2017-06-26 10:08] LABS: HEPATITIS B CORE ANTIBODY IGM NEGATIVE (NEGATIVE)
[2017-06-26 10:10] LABS: HEPATITIS A ANTIBODY IGM NEGATIVE (NEGATIVE)
[2017-06-26] MEDS: BACLOFEN 10 MG TAB PO ×3 (10:53→20:22)
[2017-06-26 11:50] LABS: BEDSIDE GLUCOSE 173 MG/DL (80-115)
[2017-06-26 19:48] LABS: BEDSIDE GLUCOSE 139 MG/DL (80-115)
[2017-06-26 23:51] LABS: BEDSIDE GLUCOSE 147 MG/DL (80-115)
[2017-06-27] MEDS: NS 1,000 ML IV ×3 (02:54→16:00)
[2017-06-27 06:24] LABS: BEDSIDE GLUCOSE 193 MG/DL (80-115)
[2017-06-27] MEDS: HumaLOG INSULIN (NovoLOG) PER UNIT SC ×4 (06:41→21:00)
[2017-06-27 07:10] LABS: ALBUMIN 2.8 GM/DL (3.2-5.2); ALBUMIN/GLOBULIN RATIO 0.74 (1.00-1.93); ALKALINE PHOSPHATASE 194 U/L (45-117); ALT/SGPT 103 U/L (12-78); ANION GAP 9 MEQ/L (8-16); AST/SGOT 58 U/L (7-37); BILIRUBIN,TOTAL 1.1 MG/DL (0.2-1.0); BLOOD UREA NITROGEN 16 MG/DL (7-18); CALCIUM LEVEL 8.1 MG/DL (8.8-10.2); CARBON DIOXIDE LEVEL 26 MEQ/L (21-32); CHLORIDE LEVEL 110 MEQ/L (98-107); CREATININE FOR GFR 1.09 MG/DL (0.70-1.30); GLOMERULAR FILTRATION RATE > 60.0 (>49); GLUCOSE, FASTING 175 MG/DL (70-100); LIPASE 815 U/L (73-393); POTASSIUM SERUM 3.8 MEQ/L (3.5-5.1); SODIUM LEVEL 145 MEQ/L (136-145); TOTAL PROTEIN 6.6 GM/DL (6.4-8.2)
[2017-06-27] MEDS: SENOKOT S TAB PO (08:27)
[2017-06-27] MEDS: BACLOFEN 10 MG TAB PO ×3 (08:27→20:59)
[2017-06-27] MEDS: GABAPENTIN 300 MG CAP PO ×3 (08:28→20:59)
[2017-06-27] MEDS: CYANOCOBALAMIN 500 MCG TAB PO (08:28)
[2017-06-27] MEDS: ASPIRIN 81 MG ENTERIC TAB PO (08:29)
[2017-06-27] MEDS: CARVedilol 12.5 MG TAB PO ×2 (08:29→21:00)
[2017-06-27] MEDS: traMADol 50 MG TAB PO ×3 (08:30→21:00)
[2017-06-27] MEDS: ENOXAPARIN 40 MG/0.4 ML SYRINGE (J1650) SC (08:31)
[2017-06-27 09:09] LABS: HEMOGLOBIN 13.9 g/dl (14.0-18.0); MEAN CORPUSCULAR HEMOGLOBIN 32.3 pg (27.0-33.0); MEAN CORPUSCULAR HGB CONC 32.3 g/dl (32.0-36.5); PLATELET COUNT, AUTOMATED 143 10^3/uL (150-450); RED CELL DISTRIBUTION WIDTH 14.4 % (11.5-14.5); WHITE BLOOD COUNT 13.6 10^3/uL (4.0-10.0)
[2017-06-27 14:11] LABS: ANTINUCLEAR ANTIBODIES DIRECT Negative (Negative)
[2017-06-27] MEDS ORDERED: GLUCOSE 4 GM CHEW TABLET PO (19:00)
[2017-06-27] MEDS ORDERED: GLUCAGON FOR INJ 1 MG VIAL (J1610) SC (19:00)
[2017-06-27] MEDS ORDERED: DEXTROSE 50% 50 ML SYRINGE IV (19:00)
[2017-06-27 20:35] LABS: BEDSIDE GLUCOSE 187 MG/DL (80-115)
[2017-06-27 20:39] LABS: BEDSIDE GLUCOSE 134 MG/DL (80-115)
[2017-06-28 07:20] LABS: ALBUMIN 2.5 GM/DL (3.2-5.2); ALBUMIN/GLOBULIN RATIO 0.64 (1.00-1.93); ALKALINE PHOSPHATASE 243 U/L (45-117); ALT/SGPT 99 U/L (12-78); ANION GAP 7 MEQ/L (8-16); AST/SGOT 97 U/L (7-37); BILIRUBIN,TOTAL 1.3 MG/DL (0.2-1.0); BLOOD UREA NITROGEN 13 MG/DL (7-18); CALCIUM LEVEL 7.9 MG/DL (8.8-10.2); CARBON DIOXIDE LEVEL 28 MEQ/L (21-32); CHLORIDE LEVEL 105 MEQ/L (98-107); GLOMERULAR FILTRATION RATE > 60.0 (>49); GLUCOSE, FASTING 154 MG/DL (70-100); LIPASE 592 U/L (73-393); POTASSIUM SERUM 3.7 MEQ/L (3.5-5.1); SODIUM LEVEL 140 MEQ/L (136-145); TOTAL PROTEIN 6.4 GM/DL (6.4-8.2)
[2017-06-28] MEDS: HumaLOG INSULIN (NovoLOG) PER UNIT SC ×2 (07:37→12:25)
[2017-06-28] MEDS: GABAPENTIN 300 MG CAP PO (07:37)
[2017-06-28] MEDS ORDERED: MORPHINE 4 MG/ML 1ML VIAL IV (07:45)
[2017-06-28 08:14] LABS: IgG SUBCLASS 4(ONLY) 13 mg/dL (2-96)
[2017-06-28] MEDS: ASPIRIN 81 MG ENTERIC TAB PO (09:16)
[2017-06-28] MEDS: CARVedilol 12.5 MG TAB PO (09:17)
[2017-06-28] MEDS: SENOKOT S TAB PO (09:17)
[2017-06-28] MEDS: BACLOFEN 10 MG TAB PO (09:17)
[2017-06-28] MEDS: CYANOCOBALAMIN 500 MCG TAB PO (09:18)
[2017-06-28] MEDS: OMEGA-3 1050MG CAPSULE PO (09:18)
[2017-06-28] MEDS: ENOXAPARIN 40 MG/0.4 ML SYRINGE (J1650) SC (09:20)
[2017-06-28] MEDS: traMADol 50 MG TAB PO (09:30)
[2017-06-28 11:39] LABS: BEDSIDE GLUCOSE 179 MG/DL (80-115)
[2017-06-29 18:14] LABS: BEDSIDE GLUCOSE 153 MG/DL (80-115)
== END 2017-06-28 13:25 | disposition home or self-care (01) | DRG 440 ==
LOC: M ED INP 06-26 00:14 → M ED 18:34 → M MS5PR 06-26 15:25
DX: K85.90 Acute pancreatitis without necrosis or infection, unspecified (principal); E11.9 Type 2 diabetes mellitus without complications; I10 Essential (primary) hypertension; E78.5 Hyperlipidemia, unspecified; I25.10 Atherosclerotic heart disease of native coronary artery without angina pectoris; F43.10 Post-traumatic stress disorder, unspecified; R51 Headache; M54.5 Low back pain; Z79.82 Long term (current) use of aspirin; Z79.52 Long term (current) use of systemic steroids; Z79.899 Other long term (current) drug therapy; Z87.891 Personal history of nicotine dependence

== ENCOUNTER → 2017-07-08 | Outpatient (CLI) | payer MEDICARE ==
[2017-07-08 11:14] LABS: ALBUMIN 3.4 GM/DL (3.2-5.2); ALKALINE PHOSPHATASE 295 U/L (45-117); ALT/SGPT 97 U/L (12-78); ANION GAP 11 MEQ/L (8-16); AST/SGOT 65 U/L (7-37); BILIRUBIN,TOTAL 0.6 MG/DL (0.2-1.0); BLOOD UREA NITROGEN 16 MG/DL (7-18); CALCIUM LEVEL 9.3 MG/DL (8.8-10.2); CARBON DIOXIDE LEVEL 28 MEQ/L (21-32); CHLORIDE LEVEL 99 MEQ/L (98-107); CREATININE FOR GFR 1.16 MG/DL (0.70-1.30); GLOMERULAR FILTRATION RATE > 60.0 (>49); POTASSIUM SERUM 4.7 MEQ/L (3.5-5.1); SODIUM LEVEL 138 MEQ/L (136-145); TOTAL PROTEIN 6.8 GM/DL (6.4-8.2)
[2017-07-08 11:47] LABS: GLUCOSE, FASTING 406 MG/DL (70-100)
== END ==
LOC: M LAB 10:08
DX: I10 Essential (primary) hypertension (principal); E11.9 Type 2 diabetes mellitus without complications
CPT/HCPCS: 80053

== ENCOUNTER → 2018-04-14 | Outpatient (CLI) | payer OTHER, MEDICARE | LOC: M SLEEP 19:15 | DX: R51 Headache (principal) | CPT/HCPCS: 95810 ==

== ENCOUNTER → 2018-06-25 | Outpatient (CLI) | payer OTHER, MEDICARE ==
[~2018-06-25] MED LIST changes: +ARTI99.0 OU; +ASPI81TAEC PO; +ATOR1TAB21; +ATOR1TAB21 PO; +B-12100010 PO; +BACL10TA2 PO; +BACT800T5 PO; +CARV12.5; +CARV12.5 PO; +CHLO125TA; +CHLO25TA PO; +CILO100T PO; +CLOT1CRE EXT; +CLOT1CRE6 TOP; +EPLE25TA PO; +GABA600T4 PO; +LIDO4SO TOP; +METF-877 PO; +NITR4TASL SL; +PANT20TA2 PO; +PRAZ2CAP PO; +SENN8.6T9 PO; +STOO100C PO; +TRAM50TA2 PO; +VITA10002 PO; +VITATAB11 PO
--- NOTE | 2018-06-27 19:52 | SLEEPCENT ---
DATE OF PROCEDURE: 06/25/2018 ORDERED BY: Jacinta Garcia at the [facility] Nocturnal polysomnography was performed for the titration of pressure therapy in this patient with obstructive sleep apnea syndrome, apnea-hypopnea index of 26. For testing, a ResMed Quattro full face mask of small size was used, 4 cm of water pressure were applied to the circuit and the lights were extinguished. 8 hours and 31 minutes of data were reviewed. There were 362 minutes of sleep identified. Sleep latency was prolonged at 40 minutes. Rapid eye movement (REM) latency was prolonged at 213 minutes. Sleep architecture improved late in the study. There were three REM cycles noted. Overall sleep efficiency was 71.8%. The patient's electrocardiogram showed a sinus rhythm with an average heart rate of 70 beats per minute. EEG showed normal waveforms for awake and sleep. Respiratory events were fully palliated with continuous positive airway pressure (CPAP) at a pressure of +9 with some persistent activity noted in the limb leads. Limb movement arousals, however, occurred only 2.5 times per hour. IMPRESSION: Obstructive sleep apnea syndrome (G47.33). RECOMMENDATION: Nightly use of pressure therapy 9 cm of water.
== END ==
LOC: M SLEEP 19:27
PROVIDERS: ATTEND Family Medicine
DX: G47.33 Obstructive sleep apnea (adult) (pediatric) (principal)

== ENCOUNTER → 2020-09-08 | Outpatient (CLI) | payer OTHER, MEDICARE ==
[~2020-09-08] MED LIST changes: -ARTI99.0 OU; +ASPI-569 PO; -ASPI81TAEC PO; -CLOT1CRE EXT; +CLOT1CRE51 EXT; +CLOT1CRE56 TOP; -CLOT1CRE6 TOP; +CYAN100049 PO; +MM S100C PO; -PANT20TA2 PO; +PANT20TA6 PO; +POLYOPD OU; +SENN1TAB36 PO; -SENN8.6T9 PO; -STOO100C PO; -VITA10002 PO
[2020-09-08 09:04] LABS: BLOOD UREA NITROGEN 8 MG/DL (7-18); CALCIUM LEVEL 8.5 MG/DL (8.8-10.2); CARBON DIOXIDE LEVEL 24 MEQ/L (21-32); CHLORIDE LEVEL 108 MEQ/L (98-107); CREATININE FOR GFR 1.03 MG/DL (0.70-1.30); GLOMERULAR FILTRATION RATE > 60.0 (>49); GLUCOSE, FASTING 164 MG/DL (70-100); POTASSIUM SERUM 3.9 MEQ/L (3.5-5.1); SODIUM LEVEL 141 MEQ/L (136-145)
== END ==
LOC: M LAB 08:02
PROVIDERS: ATTEND Ophthalmology
DX: H02.423 Myogenic ptosis of bilateral eyelids (principal)

== ENCOUNTER 2021-08-10 10:15 | Inpatient (IN) | payer MEDICARE ==
[~2021-08-10] VITALS: Ht 157.5 cm; Wt 94.6 kg
[2021-08-10] MEDS ORDERED: CLOT1CRE56 TOP (10:46)
[2021-08-10] MEDS ORDERED: GLIP5TAB8 PO (10:46)
[2021-08-10] MEDS ORDERED: MAGN400T2 PO (10:46)
[2021-08-10] MEDS ORDERED: AMIT10TA7 PO (10:46)
[2021-08-10] MEDS ORDERED: URSO1TAB8 PO (10:46)
[2021-08-10] MEDS ORDERED: AUGM0.05 TOP (10:46)
[2021-08-10] MEDS ORDERED: METH-1164 PO (10:46)
[2021-08-10] MEDS ORDERED: FURO20TA2 PO (10:46)
[2021-08-10 11:10] LABS: BASO % 0.8 % (0.0-1.0); EOS # 0.1 10^3/uL (0.0-0.5); EOS % 2.7 % (0.0-3.0); HEMATOCRIT 38.8 % (42.0-52.0); HEMOGLOBIN 13.3 g/dl (13.5-17.5); LYMPH # 1.2 10^3/uL (1.5-5.0); LYMPH % 22.8 % (24.0-44.0); MEAN CORPUSCULAR HEMOGLOBIN 34.5 pg (27.0-33.0); MEAN CORPUSCULAR HGB CONC 34.3 g/dl (32.0-36.5); MEAN CORPUSCULAR VOLUME 100.5 fl (80.0-96.0); MONO # 0.5 10^3/uL (0.0-0.8); MONO % 9.5 % (2.0-8.0); NEUTROPHILS # 3.3 10^3/uL (1.5-8.5); NEUTROPHILS % 63.8 % (36.0-66.0); PLATELET COUNT, AUTOMATED 113 10^3/uL (150-450); RED BLOOD COUNT 3.86 10^6/uL (4.30-6.10); WHITE BLOOD COUNT 5.2 10^3/uL (4.0-10.0)
[2021-08-10 11:21] LABS: INR 1.23; PROTHROMBIN TIME 15.9 SECONDS (12.7-14.5)
[2021-08-10 11:38] LABS: CALCIUM LEVEL 8.9 MG/DL (8.8-10.2); CREATININE FOR GFR 1.33 MG/DL (0.70-1.30); GLOMERULAR FILTRATION RATE 56.8 (>49); POTASSIUM SERUM 3.4 MEQ/L (3.5-5.1)
[2021-08-10 11:39] LABS: CK-MB VALUE MASS < 1.0 NG/ML (<3.6); CPK CREATINE PHOSPHOKINASE 116 U/L (39-308); MB/CK RELATIVE INDEX 0.86 (< OR =4)
[2021-08-10 12:08] LABS: ABG BASE EXCESS 2.4 (-2.0-2.0); ABG HCO3 24.9 MEQ/L (22.0-26.0); ABG O2 SATURATION 93.6 % (95.0-99.0); ABG PARTIAL PRESSURE CO2 31.8 mmHg (35.0-45.0); ABG PARTIAL PRESSURE O2 66.9 mmHg (75.0-100.0); ABG STANDARD HCO3 26.5 MEQ/L (22.0-26.0); ABG TOTAL CO2 25.8 MEQ/L (23.0-31.0); ABG pH (ARTERIAL) 7.511 UNITS (7.350-7.450)
[2021-08-10] MEDS ORDERED: EPLE25TA PO (12:16)
[2021-08-10 12:19] LABS: RSV AMPLIFICATION NEGATIVE (NEGATIVE)
[2021-08-10] MEDS ORDERED: HOME MED LIST COMPLETE! XX SCH (12:20)
[2021-08-10] MEDS ORDERED: POTASSIUM CHLORIDE 10MEQ SR TABLET PO ONE (13:25)
[2021-08-10] MEDS ORDERED: GLUCOSE 4GM CHEW TABLET PO PRN (14:00)
[2021-08-10] MEDS ORDERED: DEXTROSE 50% 50 ML SYRINGE IV PRN (14:00)
[2021-08-10] MEDS ORDERED: GLUCAGON INJ 1MG VIAL SC PRN (14:00)
[2021-08-10 14:55] VITALS: BP 159/72
[2021-08-10 16:11] VITALS: BP 131/63
[2021-08-10] MEDS: methocarbamoL 500 MG TAB PO SCH ×2 (16:29→20:24)
[2021-08-10] MEDS: traMADol 50 MG TAB PO SCH ×2 (16:30→20:25)
[2021-08-10] MEDS: HumaLOG INSULIN (NovoLOG) PER UNIT SC SCH ×2 (17:08→21:00)
[2021-08-10] MEDS: AMITRIPTYLINE 10MG TABLET PO SCH (20:24)
[2021-08-10] MEDS: CARVedilol 12.5 MG TAB PO SCH (20:25)
[2021-08-10 21:00] VITALS: BP 114/56
[2021-08-11] VITALS (7 sets, daily range): BP systolic 90–149; BP diastolic 52–70
[2021-08-11 05:55] LABS: HEMATOCRIT 35.9 % (42.0-52.0); HEMOGLOBIN 12.5 g/dl (13.5-17.5); MEAN CORPUSCULAR HGB CONC 34.8 g/dl (32.0-36.5); MEAN CORPUSCULAR VOLUME 100.6 fl (80.0-96.0); PLATELET COUNT, AUTOMATED 106 10^3/uL (150-450); RED BLOOD COUNT 3.57 10^6/uL (4.30-6.10); WHITE BLOOD COUNT 5.3 10^3/uL (4.0-10.0)
[2021-08-11 06:23] LABS: BLOOD UREA NITROGEN 14 MG/DL (7-18); CALCIUM LEVEL 8.7 MG/DL (8.8-10.2); CARBON DIOXIDE LEVEL 30 MEQ/L (21-32); CHLORIDE LEVEL 111 MEQ/L (98-107); CREATININE FOR GFR 1.16 MG/DL (0.70-1.30); GLOMERULAR FILTRATION RATE > 60.0 (>49); GLUCOSE, FASTING 104 MG/DL (70-100); POTASSIUM SERUM 3.3 MEQ/L (3.5-5.1); SODIUM LEVEL 146 MEQ/L (136-145)
[2021-08-11 06:25] LABS: CHOLESTEROL RISK RATIO 2.705 (<5)
[2021-08-11 06:51] LABS: HEMOGLOBIN A1c 7.8 %
[2021-08-11] MEDS ORDERED: POTASSIUM CHLORIDE 10MEQ SR TABLET PO ONE (07:05)
[2021-08-11] MEDS: HumaLOG INSULIN (NovoLOG) PER UNIT SC SCH ×4 (08:44→21:00)
[2021-08-11] MEDS: methocarbamoL 500 MG TAB PO SCH ×3 (08:44→21:41)
[2021-08-11] MEDS: traMADol 50 MG TAB PO SCH ×3 (08:45→21:42)
[2021-08-11] MEDS: ASPIRIN 81MG ENTERIC TABLET PO SCH (08:45)
[2021-08-11] MEDS: ATORVASTATIN 20 MG TAB PO SCH (08:45)
[2021-08-11] MEDS: MAGNESIUM OXIDE 400MG TAB (MAG-OX) PO SCH (08:46)
[2021-08-11] MEDS: PANTOPRAZOLE 20 MG TAB PO SCH (08:46)
[2021-08-11] MEDS: CARVedilol 12.5 MG TAB PO SCH ×2 (08:46→21:41)
[2021-08-11] MEDS: FUROSEMIDE 20 MG TAB PO SCH (08:46)
[2021-08-11] MEDS: AMITRIPTYLINE 10MG TABLET PO SCH (21:41)
[2021-08-12 06:00] VITALS: BP 133/71
[2021-08-12 06:24] LABS: HEMATOCRIT 35.8 % (42.0-52.0); HEMOGLOBIN 12.2 g/dl (13.5-17.5); MEAN CORPUSCULAR HEMOGLOBIN 34.6 pg (27.0-33.0); MEAN CORPUSCULAR HGB CONC 34.1 g/dl (32.0-36.5); MEAN CORPUSCULAR VOLUME 101.4 fl (80.0-96.0); PLATELET COUNT, AUTOMATED 103 10^3/uL (150-450); RED BLOOD COUNT 3.53 10^6/uL (4.30-6.10); WHITE BLOOD COUNT 5.6 10^3/uL (4.0-10.0)
[2021-08-12 06:58] LABS: BLOOD UREA NITROGEN 15 MG/DL (7-18); CALCIUM LEVEL 8.4 MG/DL (8.8-10.2); CARBON DIOXIDE LEVEL 26 MEQ/L (21-32); CHLORIDE LEVEL 111 MEQ/L (98-107); CREATININE FOR GFR 1.17 MG/DL (0.70-1.30); GLOMERULAR FILTRATION RATE > 60.0 (>49); GLUCOSE, FASTING 127 MG/DL (70-100); MAGNESIUM LEVEL 2.1 MG/DL (1.8-2.4); POTASSIUM SERUM 3.4 MEQ/L (3.5-5.1); SODIUM LEVEL 142 MEQ/L (136-145)
[2021-08-12] MEDS: HumaLOG INSULIN (NovoLOG) PER UNIT SC SCH ×2 (07:30→12:00)
[2021-08-12] MEDS ORDERED: POTASSIUM CHLORIDE 10MEQ SR TABLET PO ONE (07:45)
[2021-08-12 08:00] VITALS: BP 133/60
[2021-08-12 08:32] VITALS: BP 130/63
[2021-08-12] MEDS: PANTOPRAZOLE 20 MG TAB PO SCH (08:32)
[2021-08-12] MEDS: CARVedilol 12.5 MG TAB PO SCH (08:32)
[2021-08-12] MEDS: MAGNESIUM OXIDE 400MG TAB (MAG-OX) PO SCH (08:32)
[2021-08-12] MEDS: ASPIRIN 81MG ENTERIC TABLET PO SCH (08:33)
[2021-08-12] MEDS: traMADol 50 MG TAB PO SCH (08:33)
[2021-08-12] MEDS: methocarbamoL 500 MG TAB PO SCH (08:33)
[2021-08-12] MEDS: FUROSEMIDE 20 MG TAB PO SCH (08:33)
[2021-08-12] MEDS: ATORVASTATIN 20 MG TAB PO SCH (08:33)
== END 2021-08-12 13:12 | disposition home health service (06) | DRG 948 ==
LOC: EDBD 10:15 → M ED 10:15 → M ED INP 13:12 → M PCU 14:50
PROVIDERS: ADMIT Internal Medicine; ATTEND Internal Medicine
DX: R53.1 Weakness (principal); R29.6 Repeated falls; E11.9 Type 2 diabetes mellitus without complications; I50.9 Heart failure, unspecified; I25.10 Atherosclerotic heart disease of native coronary artery without angina pectoris; M54.50 Low back pain, unspecified; G47.33 Obstructive sleep apnea (adult) (pediatric); K21.9 Gastro-esophageal reflux disease without esophagitis; F43.10 Post-traumatic stress disorder, unspecified; I10 Essential (primary) hypertension; E78.5 Hyperlipidemia, unspecified; Z87.891 Personal history of nicotine dependence; Z90.49 Acquired absence of other specified parts of digestive tract; Z79.82 Long term (current) use of aspirin; Z79.891 Long term (current) use of opiate analgesic; Z79.899 Other long term (current) drug therapy

== ENCOUNTER 2021-10-09 15:04 | Inpatient (IN) | payer OTHER ==
[~2021-10-09] VITALS: Ht 157.5 cm; Wt 78.9 kg
[~2021-10-09 15:04] MED LIST changes: +AMIT10TA7 PO; +AUGM0.05 TOP; +FURO20TA2 PO; +GLIP5TAB8 PO; +MAGN400T2 PO; +METH-1164 PO; +URSO1TAB8 PO
[2021-10-09] MEDS ORDERED: LIDOCAINE 2% 5ML JELLY UROJET TOP ONE (16:15)
[2021-10-09 17:02] LABS: BASO % 0.7 % (0.0-1.0); EOS # 0.1 10^3/uL (0.0-0.5); EOS % 2.4 % (0.0-3.0); HEMATOCRIT 38.9 % (42.0-52.0); HEMOGLOBIN 13.8 g/dl (13.5-17.5); LYMPH # 1.4 10^3/uL (1.5-5.0); LYMPH % 23.7 % (24.0-44.0); MEAN CORPUSCULAR HEMOGLOBIN 36.1 pg (27.0-33.0); MEAN CORPUSCULAR HGB CONC 35.5 g/dl (32.0-36.5); MEAN CORPUSCULAR VOLUME 101.8 fl (80.0-96.0); MONO # 0.7 10^3/uL (0.0-0.8); MONO % 12.9 % (2.0-8.0); NEUTROPHILS # 3.4 10^3/uL (1.5-8.5); NEUTROPHILS % 59.8 % (36.0-66.0); RED BLOOD COUNT 3.82 10^6/uL (4.30-6.10); WHITE BLOOD COUNT 5.8 10^3/uL (4.0-10.0)
[2021-10-09 17:18] LABS: CALCIUM LEVEL 7.9 MG/DL (8.8-10.2); CREATININE FOR GFR 2.1 MG/DL (0.70-1.30); GLOMERULAR FILTRATION RATE 33.5 (>49); POTASSIUM SERUM 2.9 MEQ/L (3.5-5.1)
[2021-10-09 17:32] LABS: PLATELET COUNT, AUTOMATED 86 10^3/uL (150-450)
[2021-10-09] MEDS ORDERED: POTASSIUM CHLORIDE 10MEQ SR TABLET PO ONE ×2 (17:35→23:30)
[2021-10-09] MEDS ORDERED: KCL 10MEQ/100ML SWI (KRUN) 10 MEQ in IV 1 EA IV ONE (17:35)
[2021-10-09 17:47] LABS: RSV AMPLIFICATION NEGATIVE (NEGATIVE)
[2021-10-09 18:03] LABS: CK-MB VALUE MASS 2.1 NG/ML (<3.6); MB/CK RELATIVE INDEX 0.77 (< OR =4)
[2021-10-09] MEDS ORDERED: HEPARIN SOD (PORCINE) 5000UNITS/ML 1ML VIAL/SYRINGE SC SCH (18:40)
[2021-10-09] MEDS ORDERED: URSO1TAB8 PO ×2 (20:37)
[2021-10-09] MEDS ORDERED: TOPI25TA10 PO (20:37)
[2021-10-09] MEDS ORDERED: HOME MED LIST COMPLETE! XX SCH (20:40)
[2021-10-09 22:01] VITALS: BP 132/68
[2021-10-09 23:01] LABS: CALCIUM LEVEL 7.9 MG/DL (8.8-10.2); CREATININE FOR GFR 2.08 MG/DL (0.70-1.30); GLOMERULAR FILTRATION RATE 33.9 (>49); MAGNESIUM LEVEL 1.3 MG/DL (1.8-2.4); POTASSIUM SERUM 3.1 MEQ/L (3.5-5.1)
[2021-10-09] MEDS ORDERED: MAG SULF 1GM/100ML (MAG RUN) 1 GM in IV 1 EA IV ONE (23:30)
[2021-10-09] MEDS ORDERED: PILL CUTTER 1 EACH XX PRN (23:40)
[2021-10-09 23:43] LABS: ALBUMIN 2.4 GM/DL (3.2-5.2); BILIRUBIN,DIRECT 1.2 MG/DL (0.0-0.2); BILIRUBIN,TOTAL 2.4 MG/DL (0.2-1.0)
[2021-10-10] MEDS: CARVedilol 12.5 MG TAB PO SCH ×3 (00:40→21:00)
[2021-10-10] MEDS: TOPIRAMATE (TopAMAX) 25 MG TAB PO SCH ×2 (00:41→21:00)
[2021-10-10] MEDS: NYSTATIN 100,000 UNITS/GM TOPICAL PWD 15 GM TOP SCH ×3 (01:16→21:00)
[2021-10-10] MEDS: ursodioL 300 MG CAP PO SCH ×3 (01:17→21:00)
[2021-10-10] MEDS: AMITRIPTYLINE 10MG TABLET PO SCH ×2 (01:17→21:00)
[2021-10-10] MEDS: methocarbamoL 500 MG TAB PO SCH ×4 (01:17→21:00)
[2021-10-10 06:34] LABS: BASO % 0.2 % (0.0-1.0); EOS % 0.5 % (0.0-3.0); HEMATOCRIT 43.2 % (42.0-52.0); HEMOGLOBIN 14.8 g/dl (13.5-17.5); LYMPH # 1.2 10^3/uL (1.5-5.0); LYMPH % 13.8 % (24.0-44.0); MEAN CORPUSCULAR HEMOGLOBIN 34.7 pg (27.0-33.0); MEAN CORPUSCULAR HGB CONC 34.3 g/dl (32.0-36.5); MEAN CORPUSCULAR VOLUME 101.4 fl (80.0-96.0); MONO # 0.9 10^3/uL (0.0-0.8); MONO % 10.4 % (2.0-8.0); NEUTROPHILS # 6.5 10^3/uL (1.5-8.5); NEUTROPHILS % 74.6 % (36.0-66.0); PLATELET COUNT, AUTOMATED 108 10^3/uL (150-450); RED BLOOD COUNT 4.26 10^6/uL (4.30-6.10); WHITE BLOOD COUNT 8.8 10^3/uL (4.0-10.0)
[2021-10-10 06:56] VITALS: BP 105/46
[2021-10-10 07:03] LABS: CALCIUM LEVEL 8.5 MG/DL (8.8-10.2); CREATININE FOR GFR 1.83 MG/DL (0.70-1.30); GLOMERULAR FILTRATION RATE 39.3 (>49); POTASSIUM SERUM 3.5 MEQ/L (3.5-5.1)
[2021-10-10 07:06] LABS: ALBUMIN 2.6 GM/DL (3.2-5.2); BILIRUBIN,DIRECT 1.6 MG/DL (0.0-0.2); BILIRUBIN,TOTAL 3.3 MG/DL (0.2-1.0)
[2021-10-10] MEDS ORDERED: glipiZIDE (GLUCOTROL) 5 MG TAB PO SCH (07:30)
[2021-10-10] MEDS: LACTULOSE 20 GM/30 ML SYRUP UD PO SCH ×3 (08:10→18:33)
[2021-10-10] MEDS: FUROSEMIDE 20MG/2ML VIAL (J1940) IV SCH ×2 (08:10→17:03)
[2021-10-10] MEDS: MAGNESIUM OXIDE 400MG TAB (MAG-OX) PO SCH ×2 (08:18→21:00)
[2021-10-10] MEDS: POTASSIUM CHLORIDE 10MEQ SR TABLET PO SCH ×3 (08:18→21:00)
[2021-10-10] MEDS: ASPIRIN 81MG ENTERIC TABLET PO SCH (08:19)
[2021-10-10] MEDS: PANTOPRAZOLE 20 MG TAB PO SCH (08:19)
[2021-10-10] MEDS: ATORVASTATIN 20 MG TAB PO SCH (08:19)
[2021-10-10] MEDS ORDERED: MAGNESIUM OXIDE 400MG TAB (MAG-OX) PO SCH (09:00)
[2021-10-11] MEDS: LACTULOSE 20 GM/30 ML SYRUP UD PO SCH ×4 (00:07→17:02)
[2021-10-11 06:00] VITALS: BP 131/63
[2021-10-11] MEDS: ursodioL 300 MG CAP PO SCH ×2 (09:00→20:34)
[2021-10-11] MEDS: PANTOPRAZOLE 20 MG TAB PO SCH (09:00)
[2021-10-11] MEDS: CARVedilol 12.5 MG TAB PO SCH ×2 (09:00→20:35)
[2021-10-11] MEDS: POTASSIUM CHLORIDE 10MEQ SR TABLET PO SCH ×2 (09:00→20:35)
[2021-10-11] MEDS: ATORVASTATIN 20 MG TAB PO SCH (09:00)
[2021-10-11] MEDS: ASPIRIN 81MG ENTERIC TABLET PO SCH (09:00)
[2021-10-11] MEDS: methocarbamoL 500 MG TAB PO SCH ×3 (09:00→20:33)
[2021-10-11] MEDS: MAGNESIUM OXIDE 400MG TAB (MAG-OX) PO SCH ×2 (09:00→20:34)
[2021-10-11] MEDS: NYSTATIN 100,000 UNITS/GM TOPICAL PWD 15 GM TOP SCH ×2 (09:00→20:37)
[2021-10-11 09:45] LABS: HEMATOCRIT 41.3 % (42.0-52.0); HEMOGLOBIN 14.5 g/dl (13.5-17.5); MEAN CORPUSCULAR HEMOGLOBIN 35.7 pg (27.0-33.0); MEAN CORPUSCULAR HGB CONC 35.1 g/dl (32.0-36.5); MEAN CORPUSCULAR VOLUME 101.7 fl (80.0-96.0); RED BLOOD COUNT 4.06 10^6/uL (4.30-6.10); WHITE BLOOD COUNT 10.9 10^3/uL (4.0-10.0)
[2021-10-11 09:50] LABS: PLATELET COUNT, AUTOMATED 83 10^3/uL (150-450)
[2021-10-11 10:02] LABS: ALBUMIN 2.2 GM/DL (3.2-5.2); BILIRUBIN,DIRECT 1.8 MG/DL (0.0-0.2); CALCIUM LEVEL 8.3 MG/DL (8.8-10.2); CREATININE FOR GFR 1.75 MG/DL (0.70-1.30); GLOMERULAR FILTRATION RATE 41.3 (>49); POTASSIUM SERUM 2.8 MEQ/L (3.5-5.1); TOTAL PROTEIN 6.4 GM/DL (6.4-8.2)
[2021-10-11 10:25] LABS: ATYPICAL LYMPH 1 % (0-5); BASOPHILS 1 % (0-1); EOSINOPHILS 1 % (0-3); LYMPHOCYTES 13 % (16-44); MONOCYTES 5 % (0-5); NEUTROPHILS 67 % (28-66); PLATELET ESTIMATE MARKED DECREASE (NORMAL)
[2021-10-11] MEDS ORDERED: POTASSIUM CHLORIDE INJ 40 MEQ in NS 0.45% 1,000 ML IV SCH (12:00)
[2021-10-11 14:00] VITALS: BP 104/52
[2021-10-11] MEDS: TOPIRAMATE (TopAMAX) 25 MG TAB PO SCH (20:34)
[2021-10-11] MEDS: AMITRIPTYLINE 10MG TABLET PO SCH (20:37)
[2021-10-11 21:43] VITALS: BP 132/71
[2021-10-12] MEDS: LACTULOSE 20 GM/30 ML SYRUP UD PO SCH ×4 (05:09→17:18)
[2021-10-12 06:00] VITALS: BP 100/58
[2021-10-12 07:37] LABS: HEMATOCRIT 39.1 % (42.0-52.0); HEMOGLOBIN 13.6 g/dl (13.5-17.5); MEAN CORPUSCULAR HEMOGLOBIN 35.8 pg (27.0-33.0); MEAN CORPUSCULAR HGB CONC 34.8 g/dl (32.0-36.5); MEAN CORPUSCULAR VOLUME 102.9 fl (80.0-96.0); WHITE BLOOD COUNT 9.4 10^3/uL (4.0-10.0)
[2021-10-12 07:42] LABS: PLATELET COUNT, AUTOMATED 71 10^3/uL (150-450)
[2021-10-12 08:04] LABS: BILIRUBIN,DIRECT 1.8 MG/DL (0.0-0.2); BILIRUBIN,TOTAL 2.8 MG/DL (0.2-1.0); CALCIUM LEVEL 8.3 MG/DL (8.8-10.2); CREATININE FOR GFR 1.61 MG/DL (0.70-1.30); GLOMERULAR FILTRATION RATE 45.5 (>49); POTASSIUM SERUM 2.7 MEQ/L (3.5-5.1); TOTAL PROTEIN 6.2 GM/DL (6.4-8.2)
[2021-10-12 08:37] LABS: EOSINOPHILS 5 % (0-3); LYMPHOCYTES 12 % (16-44); MONOCYTES 3 % (0-5); NEUTROPHILS 80 % (28-66)
[2021-10-12 08:38] LABS: PLATELET ESTIMATE DECREASED (NORMAL); TOXIC GRANULATION 1+
[2021-10-12] MEDS: CARVedilol 12.5 MG TAB PO SCH ×2 (09:00→20:07)
[2021-10-12] MEDS: SPIRONOLACTONE 25 MG TAB PO SCH (09:00)
[2021-10-12] MEDS ORDERED: KCL 10MEQ/100ML SWI (KRUN) 10 MEQ in IV 1 EA IV SCH (09:35)
[2021-10-12] MEDS: PANTOPRAZOLE 20 MG TAB PO SCH (09:58)
[2021-10-12] MEDS: ASPIRIN 81MG ENTERIC TABLET PO SCH (09:58)
[2021-10-12] MEDS: POTASSIUM CHLORIDE 10% LIQ 20 MEQ/15 ML UDC PO SCH ×2 (09:58→20:09)
[2021-10-12] MEDS: methocarbamoL 500 MG TAB PO SCH ×3 (09:58→20:08)
[2021-10-12] MEDS: MAGNESIUM OXIDE 400MG TAB (MAG-OX) PO SCH ×2 (09:58→20:08)
[2021-10-12] MEDS: ursodioL 300 MG CAP PO SCH ×2 (09:58→20:08)
[2021-10-12] MEDS: ATORVASTATIN 20 MG TAB PO SCH (09:58)
[2021-10-12] MEDS: NYSTATIN 100,000 UNITS/GM TOPICAL PWD 15 GM TOP SCH ×2 (09:59→20:09)
[2021-10-12] MEDS: AMITRIPTYLINE 10MG TABLET PO SCH (20:08)
[2021-10-12] MEDS: TOPIRAMATE (TopAMAX) 25 MG TAB PO SCH (20:08)
[2021-10-12 20:58] VITALS: BP 104/70
[2021-10-13] MEDS: LACTULOSE 20 GM/30 ML SYRUP UD PO SCH ×4 (05:21→17:34)
[2021-10-13 06:00] VITALS: BP 143/83
[2021-10-13 07:03] LABS: BASO # 0.1 10^3/uL (0.0-0.2); BASO % 0.7 % (0.0-1.0); EOS # 0.2 10^3/uL (0.0-0.5); EOS % 2.8 % (0.0-3.0); HEMATOCRIT 37.9 % (42.0-52.0); HEMOGLOBIN 13.1 g/dl (13.5-17.5); LYMPH # 1.1 10^3/uL (1.5-5.0); LYMPH % 15.8 % (24.0-44.0); MEAN CORPUSCULAR HEMOGLOBIN 35.6 pg (27.0-33.0); MEAN CORPUSCULAR HGB CONC 34.6 g/dl (32.0-36.5); MONO # 0.6 10^3/uL (0.0-0.8); MONO % 8.3 % (2.0-8.0); NEUTROPHILS # 4.9 10^3/uL (1.5-8.5); NEUTROPHILS % 71.4 % (36.0-66.0); RED BLOOD COUNT 3.68 10^6/uL (4.30-6.10); WHITE BLOOD COUNT 6.9 10^3/uL (4.0-10.0)
[2021-10-13 07:13] LABS: PLATELET COUNT, AUTOMATED 69 10^3/uL (150-450)
[2021-10-13 07:57] LABS: ALBUMIN 1.9 GM/DL (3.2-5.2); BILIRUBIN,DIRECT 1.7 MG/DL (0.0-0.2); BILIRUBIN,TOTAL 2.6 MG/DL (0.2-1.0); CALCIUM LEVEL 7.6 MG/DL (8.8-10.2); CREATININE FOR GFR 1.5 MG/DL (0.70-1.30); GLOMERULAR FILTRATION RATE 49.4 (>49); POTASSIUM SERUM 3.1 MEQ/L (3.5-5.1); TOTAL PROTEIN 5.9 GM/DL (6.4-8.2)
[2021-10-13] MEDS: SPIRONOLACTONE 25 MG TAB PO SCH (09:44)
[2021-10-13] MEDS: methocarbamoL 500 MG TAB PO SCH ×3 (09:44→20:32)
[2021-10-13] MEDS: POTASSIUM CHLORIDE 10% LIQ 20 MEQ/15 ML UDC PO SCH ×2 (09:44→20:32)
[2021-10-13] MEDS: ASPIRIN 81MG ENTERIC TABLET PO SCH (09:45)
[2021-10-13] MEDS: ursodioL 300 MG CAP PO SCH ×2 (09:45→20:33)
[2021-10-13] MEDS: PANTOPRAZOLE 20 MG TAB PO SCH (09:46)
[2021-10-13] MEDS: ATORVASTATIN 20 MG TAB PO SCH (09:46)
[2021-10-13] MEDS: CARVedilol 12.5 MG TAB PO SCH ×2 (09:47→20:37)
[2021-10-13] MEDS: NYSTATIN 100,000 UNITS/GM TOPICAL PWD 15 GM TOP SCH ×2 (09:48→20:34)
[2021-10-13] MEDS: MAGNESIUM OXIDE 400MG TAB (MAG-OX) PO SCH ×2 (09:51→20:32)
[2021-10-13 14:24] VITALS: BP 117/62
[2021-10-13] MEDS: AMITRIPTYLINE 10MG TABLET PO SCH (20:32)
[2021-10-13] MEDS: TOPIRAMATE (TopAMAX) 25 MG TAB PO SCH (20:33)
[2021-10-13 22:00] VITALS: BP 116/63
[2021-10-14] MEDS: LACTULOSE 20 GM/30 ML SYRUP UD PO SCH ×4 (00:37→17:30)
[2021-10-14 06:00] VITALS: BP 111/62
[2021-10-14 06:14] LABS: BASO % 0.5 % (0.0-1.0); EOS # 0.2 10^3/uL (0.0-0.5); LYMPH # 1.1 10^3/uL (1.5-5.0); LYMPH % 19.1 % (24.0-44.0); MEAN CORPUSCULAR HEMOGLOBIN 35.1 pg (27.0-33.0); MEAN CORPUSCULAR HGB CONC 34.2 g/dl (32.0-36.5); MEAN CORPUSCULAR VOLUME 102.7 fl (80.0-96.0); MONO # 0.6 10^3/uL (0.0-0.8); MONO % 9.8 % (2.0-8.0); NEUTROPHILS # 3.7 10^3/uL (1.5-8.5); NEUTROPHILS % 66.7 % (36.0-66.0); WHITE BLOOD COUNT 5.6 10^3/uL (4.0-10.0)
[2021-10-14 06:17] LABS: PLATELET COUNT, AUTOMATED 72 10^3/uL (150-450)
[2021-10-14 06:45] LABS: ALBUMIN 1.9 GM/DL (3.2-5.2); BILIRUBIN,DIRECT 1.8 MG/DL (0.0-0.2); BILIRUBIN,TOTAL 2.3 MG/DL (0.2-1.0); CALCIUM LEVEL 7.7 MG/DL (8.8-10.2); CREATININE FOR GFR 1.58 MG/DL (0.70-1.30); GLOMERULAR FILTRATION RATE 46.5 (>49); POTASSIUM SERUM 3.4 MEQ/L (3.5-5.1); TOTAL PROTEIN 5.8 GM/DL (6.4-8.2)
[2021-10-14] MEDS: FUROSEMIDE 20MG/2ML VIAL (J1940) IV SCH (09:00)
[2021-10-14] MEDS: POTASSIUM CHLORIDE 10% LIQ 20 MEQ/15 ML UDC PO SCH ×2 (09:30→20:16)
[2021-10-14] MEDS: PANTOPRAZOLE 20 MG TAB PO SCH (09:31)
[2021-10-14] MEDS: ASPIRIN 81MG ENTERIC TABLET PO SCH (09:31)
[2021-10-14] MEDS: ATORVASTATIN 20 MG TAB PO SCH (09:31)
[2021-10-14] MEDS: methocarbamoL 500 MG TAB PO SCH ×3 (09:31→20:17)
[2021-10-14] MEDS: CARVedilol 12.5 MG TAB PO SCH ×2 (09:31→20:18)
[2021-10-14] MEDS: MAGNESIUM OXIDE 400MG TAB (MAG-OX) PO SCH ×2 (09:31→20:17)
[2021-10-14] MEDS: ursodioL 300 MG CAP PO SCH ×2 (09:31→20:17)
[2021-10-14] MEDS: SPIRONOLACTONE 25 MG TAB PO SCH (09:32)
[2021-10-14] MEDS: NYSTATIN 100,000 UNITS/GM TOPICAL PWD 15 GM TOP SCH ×2 (09:33→20:19)
[2021-10-14 14:00] VITALS: BP 101/62
[2021-10-14] MEDS: FUROSEMIDE 20 MG TAB PO SCH (17:30)
[2021-10-14 20:00] VITALS: BP 106/65
[2021-10-14] MEDS: TOPIRAMATE (TopAMAX) 25 MG TAB PO SCH (20:16)
[2021-10-14] MEDS: AMITRIPTYLINE 10MG TABLET PO SCH (20:17)
[2021-10-14 22:00] VITALS: BP 106/65
[2021-10-15] MEDS: LACTULOSE 20 GM/30 ML SYRUP UD PO SCH ×4 (05:39→20:19)
[2021-10-15 06:00] VITALS: BP 106/64
[2021-10-15 07:17] LABS: BASO % 0.8 % (0.0-1.0); EOS # 0.2 10^3/uL (0.0-0.5); HEMATOCRIT 37.9 % (42.0-52.0); HEMOGLOBIN 12.7 g/dl (13.5-17.5); LYMPH # 1.1 10^3/uL (1.5-5.0); LYMPH % 22.6 % (24.0-44.0); MEAN CORPUSCULAR HEMOGLOBIN 34.6 pg (27.0-33.0); MEAN CORPUSCULAR HGB CONC 33.5 g/dl (32.0-36.5); MEAN CORPUSCULAR VOLUME 103.3 fl (80.0-96.0); MONO # 0.6 10^3/uL (0.0-0.8); MONO % 12.4 % (2.0-8.0); NEUTROPHILS % 60.2 % (36.0-66.0); RED BLOOD COUNT 3.67 10^6/uL (4.30-6.10)
[2021-10-15 07:19] LABS: PLATELET COUNT, AUTOMATED 81 10^3/uL (150-450)
[2021-10-15 07:36] LABS: ALBUMIN 1.8 GM/DL (3.2-5.2); BILIRUBIN,DIRECT 1.3 MG/DL (0.0-0.2); BILIRUBIN,TOTAL 1.8 MG/DL (0.2-1.0); CALCIUM LEVEL 8.1 MG/DL (8.8-10.2); CREATININE FOR GFR 1.43 MG/DL (0.70-1.30); GLOMERULAR FILTRATION RATE 52.2 (>49); POTASSIUM SERUM 3.7 MEQ/L (3.5-5.1); TOTAL PROTEIN 5.9 GM/DL (6.4-8.2)
[2021-10-15] MEDS: CARVedilol 12.5 MG TAB PO SCH ×2 (09:00→20:19)
[2021-10-15] MEDS: ASPIRIN 81MG ENTERIC TABLET PO SCH (09:13)
[2021-10-15] MEDS: POTASSIUM CHLORIDE 10% LIQ 20 MEQ/15 ML UDC PO SCH (09:13)
[2021-10-15] MEDS: ursodioL 300 MG CAP PO SCH ×2 (09:13→20:18)
[2021-10-15] MEDS: methocarbamoL 500 MG TAB PO SCH ×3 (09:13→20:18)
[2021-10-15] MEDS: ATORVASTATIN 20 MG TAB PO SCH (09:13)
[2021-10-15] MEDS: MAGNESIUM OXIDE 400MG TAB (MAG-OX) PO SCH ×2 (09:14→20:18)
[2021-10-15] MEDS: SPIRONOLACTONE 25 MG TAB PO SCH (09:14)
[2021-10-15] MEDS: FUROSEMIDE 20 MG TAB PO SCH ×2 (09:15→16:26)
[2021-10-15] MEDS: PANTOPRAZOLE 20 MG TAB PO SCH (09:16)
[2021-10-15] MEDS: NYSTATIN 100,000 UNITS/GM TOPICAL PWD 15 GM TOP SCH ×2 (09:16→20:19)
[2021-10-15] MEDS ORDERED: LACTULOSE 20 GM/30 ML SYRUP UD PO SCH (12:00)
[2021-10-15 14:00] VITALS: BP 106/64
[2021-10-15] MEDS: AMITRIPTYLINE 10MG TABLET PO SCH (20:18)
[2021-10-15] MEDS: TOPIRAMATE (TopAMAX) 25 MG TAB PO SCH (20:18)
[2021-10-15 22:00] VITALS: BP 119/64
[2021-10-16] MEDS: LACTULOSE 20 GM/30 ML SYRUP UD PO SCH ×3 (05:14→20:32)
[2021-10-16 06:00] VITALS: BP 118/59
[2021-10-16 06:28] LABS: BASO % 0.7 % (0.0-1.0); EOS # 0.2 10^3/uL (0.0-0.5); EOS % 2.8 % (0.0-3.0); HEMATOCRIT 35.5 % (42.0-52.0); HEMOGLOBIN 12.4 g/dl (13.5-17.5); LYMPH # 1.3 10^3/uL (1.5-5.0); LYMPH % 22.3 % (24.0-44.0); MEAN CORPUSCULAR HEMOGLOBIN 35.9 pg (27.0-33.0); MEAN CORPUSCULAR HGB CONC 34.9 g/dl (32.0-36.5); MEAN CORPUSCULAR VOLUME 102.9 fl (80.0-96.0); MONO # 0.6 10^3/uL (0.0-0.8); MONO % 10.2 % (2.0-8.0); NEUTROPHILS # 3.6 10^3/uL (1.5-8.5); NEUTROPHILS % 62.3 % (36.0-66.0); RED BLOOD COUNT 3.45 10^6/uL (4.30-6.10); WHITE BLOOD COUNT 5.8 10^3/uL (4.0-10.0)
[2021-10-16 06:31] LABS: PLATELET COUNT, AUTOMATED 90 10^3/uL (150-450)
[2021-10-16 06:55] LABS: ALBUMIN 1.8 GM/DL (3.2-5.2); BILIRUBIN,DIRECT 1.5 MG/DL (0.0-0.2); CALCIUM LEVEL 7.3 MG/DL (8.8-10.2); CREATININE FOR GFR 1.39 MG/DL (0.70-1.30); GLOMERULAR FILTRATION RATE 53.9 (>49); POTASSIUM SERUM 3.4 MEQ/L (3.5-5.1); TOTAL PROTEIN 5.6 GM/DL (6.4-8.2)
[2021-10-16] MEDS: CARVedilol 12.5 MG TAB PO SCH ×2 (09:00→20:31)
[2021-10-16] MEDS: ASPIRIN 81MG ENTERIC TABLET PO SCH (09:45)
[2021-10-16] MEDS: methocarbamoL 500 MG TAB PO SCH ×3 (09:46→20:31)
[2021-10-16] MEDS: PANTOPRAZOLE 20 MG TAB PO SCH (09:46)
[2021-10-16] MEDS: POTASSIUM CHLORIDE 10% LIQ 20 MEQ/15 ML UDC PO SCH (09:46)
[2021-10-16] MEDS: ursodioL 300 MG CAP PO SCH ×2 (09:46→20:31)
[2021-10-16] MEDS: FUROSEMIDE 20 MG TAB PO SCH ×2 (09:47→16:18)
[2021-10-16] MEDS: NYSTATIN 100,000 UNITS/GM TOPICAL PWD 15 GM TOP SCH ×2 (09:47→20:32)
[2021-10-16] MEDS: SPIRONOLACTONE 25 MG TAB PO SCH (09:47)
[2021-10-16] MEDS: MAGNESIUM OXIDE 400MG TAB (MAG-OX) PO SCH ×2 (09:47→20:32)
[2021-10-16] MEDS: ATORVASTATIN 20 MG TAB PO SCH (09:47)
[2021-10-16] MEDS: AMITRIPTYLINE 10MG TABLET PO SCH (20:31)
[2021-10-16] MEDS: TOPIRAMATE (TopAMAX) 25 MG TAB PO SCH (20:32)
[2021-10-16 21:30] VITALS: BP 142/70
[2021-10-17 05:13] VITALS: BP 129/69
[2021-10-17] MEDS: LACTULOSE 20 GM/30 ML SYRUP UD PO SCH ×3 (05:37→20:30)
[2021-10-17 07:12] LABS: HEMATOCRIT 39.6 % (42.0-52.0); HEMOGLOBIN 13.5 g/dl (13.5-17.5); MEAN CORPUSCULAR HEMOGLOBIN 35.6 pg (27.0-33.0); MEAN CORPUSCULAR HGB CONC 34.1 g/dl (32.0-36.5); MEAN CORPUSCULAR VOLUME 104.5 fl (80.0-96.0); PLATELET COUNT, AUTOMATED 101 10^3/uL (150-450); RED BLOOD COUNT 3.79 10^6/uL (4.30-6.10); WHITE BLOOD COUNT 6.8 10^3/uL (4.0-10.0)
[2021-10-17 07:33] LABS: ALBUMIN 1.9 GM/DL (3.2-5.2); BILIRUBIN,TOTAL 2.1 MG/DL (0.2-1.0); CALCIUM LEVEL 8.5 MG/DL (8.8-10.2); CREATININE FOR GFR 1.42 MG/DL (0.70-1.30); GLOMERULAR FILTRATION RATE 52.6 (>49); MAGNESIUM LEVEL 2.4 MG/DL (1.8-2.4); TOTAL PROTEIN 6.5 GM/DL (6.4-8.2)
[2021-10-17] MEDS: FUROSEMIDE 20 MG TAB PO SCH ×2 (08:44→16:37)
[2021-10-17] MEDS: POTASSIUM CHLORIDE 10% LIQ 20 MEQ/15 ML UDC PO SCH (08:44)
[2021-10-17] MEDS: CARVedilol 12.5 MG TAB PO SCH ×2 (08:45→20:29)
[2021-10-17] MEDS: ursodioL 300 MG CAP PO SCH ×2 (08:45→20:28)
[2021-10-17] MEDS: methocarbamoL 500 MG TAB PO SCH ×3 (08:45→20:29)
[2021-10-17] MEDS: SPIRONOLACTONE 25 MG TAB PO SCH (08:45)
[2021-10-17] MEDS: ATORVASTATIN 20 MG TAB PO SCH (08:45)
[2021-10-17] MEDS: NYSTATIN 100,000 UNITS/GM TOPICAL PWD 15 GM TOP SCH ×2 (08:46→20:30)
[2021-10-17] MEDS: ASPIRIN 81MG ENTERIC TABLET PO SCH (08:46)
[2021-10-17] MEDS: PANTOPRAZOLE 20 MG TAB PO SCH (08:46)
[2021-10-17] MEDS: MAGNESIUM OXIDE 400MG TAB (MAG-OX) PO SCH ×2 (08:46→20:29)
[2021-10-17 15:22] VITALS: BP 122/65
[2021-10-17] MEDS: AMITRIPTYLINE 10MG TABLET PO SCH (20:29)
[2021-10-17] MEDS: TOPIRAMATE (TopAMAX) 25 MG TAB PO SCH (20:29)
[2021-10-18] MEDS: LACTULOSE 20 GM/30 ML SYRUP UD PO SCH (05:15)
[2021-10-18 06:00] VITALS: BP 125/68
[2021-10-18 06:47] LABS: HEMOGLOBIN 12.7 g/dl (13.5-17.5); MEAN CORPUSCULAR HEMOGLOBIN 35.6 pg (27.0-33.0); MEAN CORPUSCULAR HGB CONC 34.3 g/dl (32.0-36.5); MEAN CORPUSCULAR VOLUME 103.6 fl (80.0-96.0); PLATELET COUNT, AUTOMATED 115 10^3/uL (150-450); RED BLOOD COUNT 3.57 10^6/uL (4.30-6.10); WHITE BLOOD COUNT 7.2 10^3/uL (4.0-10.0)
[2021-10-18 07:27] LABS: ALBUMIN 1.8 GM/DL (3.2-5.2); ALT/SGPT 27 U/L (12-78); BILIRUBIN,TOTAL 1.8 MG/DL (0.2-1.0); BLOOD UREA NITROGEN 14 MG/DL (7-18); CALCIUM LEVEL 8.3 MG/DL (8.8-10.2); CARBON DIOXIDE LEVEL 25 MEQ/L (21-32); CHLORIDE LEVEL 112 MEQ/L (98-107); CREATININE FOR GFR 1.25 MG/DL (0.70-1.30); GLOMERULAR FILTRATION RATE > 60.0 (>49); GLUCOSE, FASTING 126 MG/DL (70-100); MAGNESIUM LEVEL 2.4 MG/DL (1.8-2.4); POTASSIUM SERUM 3.9 MEQ/L (3.5-5.1); SODIUM LEVEL 142 MEQ/L (136-145); TOTAL PROTEIN 5.8 GM/DL (6.4-8.2)
[2021-10-18 08:10] LABS: ALDOSTERONE 14.5 ng/dL (0.0-30.0); RENIN LEVEL 3.596 ng/mL/hr (0.167-5.380)
[2021-10-18] MEDS: ursodioL 300 MG CAP PO SCH (08:46)
[2021-10-18] MEDS: ASPIRIN 81MG ENTERIC TABLET PO SCH (08:46)
[2021-10-18] MEDS: POTASSIUM CHLORIDE 10% LIQ 20 MEQ/15 ML UDC PO SCH (08:46)
[2021-10-18 08:47] VITALS: BP 125/68
[2021-10-18] MEDS: CARVedilol 12.5 MG TAB PO SCH (08:47)
[2021-10-18] MEDS: MAGNESIUM OXIDE 400MG TAB (MAG-OX) PO SCH (08:47)
[2021-10-18] MEDS: FUROSEMIDE 20 MG TAB PO SCH (08:47)
[2021-10-18] MEDS: methocarbamoL 500 MG TAB PO SCH (08:47)
[2021-10-18] MEDS: SPIRONOLACTONE 25 MG TAB PO SCH (08:47)
[2021-10-18] MEDS: NYSTATIN 100,000 UNITS/GM TOPICAL PWD 15 GM TOP SCH (08:48)
[2021-10-18] MEDS: ATORVASTATIN 20 MG TAB PO SCH (08:48)
[2021-10-18] MEDS: PANTOPRAZOLE 20 MG TAB PO SCH (08:48)
[2021-10-18] MEDS ORDERED: POTA-151 PO (09:33)
[2021-10-18] MEDS ORDERED: FURO20TA2 PO (09:33)
[2021-10-18] MEDS ORDERED: ALDA25TA2 PO (09:33)
[2021-10-18] MEDS ORDERED: LACT20EL PO (09:33)
== END 2021-10-18 13:10 | disposition home health service (06) | DRG 683 ==
LOC: M ED 15:04 → EDBD 15:04 → M ED INP 18:39 → M MS5PR 21:59
PROVIDERS: ADMIT Internal Medicine Nephrology; ATTEND Internal Medicine
DX: N17.9 Acute kidney failure, unspecified (principal); E87.0 Hyperosmolality and hypernatremia; E87.6 Hypokalemia; N39.490 Overflow incontinence; K74.5 Biliary cirrhosis, unspecified; D69.6 Thrombocytopenia, unspecified; I10 Essential (primary) hypertension; F03.90 Unspecified dementia, unspecified severity, without behavioral disturbance, psychotic disturbance, mood disturbance, and anxiety; E78.5 Hyperlipidemia, unspecified; I25.10 Atherosclerotic heart disease of native coronary artery without angina pectoris; E86.0 Dehydration; K21.9 Gastro-esophageal reflux disease without esophagitis; G25.0 Essential tremor; E11.40 Type 2 diabetes mellitus with diabetic neuropathy, unspecified; F43.10 Post-traumatic stress disorder, unspecified; N13.9 Obstructive and reflux uropathy, unspecified; R41.89 Other symptoms and signs involving cognitive functions and awareness; R53.1 Weakness; K75.81 Nonalcoholic steatohepatitis (NASH); K72.90 Hepatic failure, unspecified without coma; M48.061 Spinal stenosis, lumbar region without neurogenic claudication; G47.33 Obstructive sleep apnea (adult) (pediatric); M54.81 Occipital neuralgia; Z90.49 Acquired absence of other specified parts of digestive tract; Z96.653 Presence of artificial knee joint, bilateral; Z87.891 Personal history of nicotine dependence; Z79.82 Long term (current) use of aspirin; Z79.84 Long term (current) use of oral hypoglycemic drugs; Z79.899 Other long term (current) drug therapy; Z74.1 Need for assistance with personal care